=== PATIENT | male | born 1950 | race Caucasian/White ===

== ENCOUNTER 2024-07-17 11:26 | Emergency (ER) | payer OTHER, SELFPAY ==
--- OUTSIDE RECORDS SUMMARY | 2024-07-17 11:29 | XMS_ITS | Encounter Summary ---
Author Organization [facility] Address [address] [place] [address] Care Team Providers Care Oil Producer Name Role Phone Jag Dawson MD Primary Care Provider [phone] Reason for Visit * Reason Onset Date Comments Change Dates on Orders 03/08/2022 Encounter Details Date Type Department Care Team (Late st Contact Info) Description 03/08/[address] [facility] Primary Care [address] [place] [address] Jag Dawson MD 7 [facility] [address] [place] [address] Change Dates on Orders Social History Tobacco Use Types Packs/Day Years Used Date Smoking Tobacco: Never Smokeless Tobacco: Never Alcohol Use Standard Drinks/Week Comments Yes 1.7 (1 standard drink = 0.6 oz p ure alcohol) 2 X WEEK Social Connections Answer Date Recorded In a typical week, how many times do you talk on the phone with family, friends, or neighbors? More than three times a week 03/31/2019 How often do you get togethe r with friends or relatives? Once a week 03/31/2019 How often do you attend chur ch or yazdanism services? More than 4 times per year 03/31/2019 Do you belong to any clubs o r organizations such as hoahaoism groups, unions, fraternal or athletic groups, or school groups? Yes 03/31/2019 How often do you attend meet ings of the clubs or organizations you belong to? More than 4 times per year 03/31/2019 Are you , , di vorced, , never , or living with a partner? 03/31/2019 Financial Resource Strain Answer Date R ecorded How hard is it for you to pa y for the very basics like food, housing, medical care, and heating? Not hard at all 09/08/2021 Food Insecurity Answer Date Recorded In the past 12 months, have you worried that your food would run out before you had money to buy more? Never true 09/08/2021 In the past 12 months, did y ou run out of food and didn't have money to buy more? Never true 09/08/2021 Transportation Needs Answer Date Record ed In the past 12 months, has l ack of transportation kept you from medical appointments or from getting medications? No 09/08/2021 Lack of Transportation (Non-Medical) Not on file 09/08/2021 Sex and Gender Information Value Date Recorded Sex Assigned at Not on file Legal Sex Male 3:09 AM ORDER CALLER Gender Identity Not on file Sexual Orientation Not on file Occupation Industry Job Start Date Job End Date RETIRED Not on file Not on file Not on file documented as of this encounter Miscellaneous Notes * Telephone Encounter - Joesph Spencer - 03/08/2022 4:13 PM CST Pt informed R CALLER * Telephone Encounter - Nasreen Torres ANP - 03/08/2022 2:17 PM ORDER CALLER Lab orders are in the system to be done. R CALLER * Telephone Encounter - Lety Cueto - 03/08/2022 12:31 PM CST Provider: Jag Dawson MD Next office visit: 03/12/2022 Caller: Trevin Cadet Message: Patient is stating that he will go in tomorrow to have his blood labs done, the date on the orders is 09/08/21. They will have to be changed so the patient can get it done. Call-back Number: [phone] R CALLER documented in this encounter Plan of Treatment Upcoming Encounters Date Type Department Care Team (Late st Contact Info) Description 10/22/2024 11:00 AM CDT Office Visit [facility] Primary Care [facility] [address] [facility] [address] [place] [address] Elissa Ortez PA [address] [facility] [address] [place] [address] documented as of this encounter Visit Diagnoses Not on filedocumented in this encounter Care Teams Oil Producer Relationship Specialty Start Date End Date Jag Dawson MD PCP - General 07/02/07 documented as of this encounter
--- OUTSIDE RECORDS SUMMARY | 2024-07-17 11:29 | XMS_ITS | Referral Summary ---
Author Organization [facility] Address [address] [place] [address] Care Team Providers Care Horseradish Maker Name Role Phone Jag Dawson MD Primary Care Provider + Allergies No known active allergies Medications tamsulosin (FLOMAX) 0.4 mg extended release capsule Take 1 capsule (0.4 mg total) by mouth daily 8 Active lisinopriL (PRINIVIL,ZESTR IL) 2.5 mg tablet Take 1 tablet (2.5 mg total) by mouth daily 0 Active atorvastatin (LIPITOR) 20 mg tablet TAKE 1 TABLET BY MOUTH LATE IN THE DAY. 9 Active empagliflozin (Jardiance) 25 mg tablet TAKE 1 TABLET BY MOUTH DAILY EARLY IN THE MORNING 0 Active pen needle, diabetic 32 gauge x 5/32 needle USE 1 DAILY. 0 Active mirabegron ER (Myrbetriq) 25 mg tablet extended release 24 hr Take 1 tablet (25 mg total) by mouth daily 9 Active semaglutide 0.25 mg or 0.5 mg (2 mg/3 mL) pen injector injection Inject 0.5 mg under the skin once a week On saturday Active insulin glargine 100 unit/mL (3 mL) pen for injection Inject 28 Units under the skin nightly Active metFORMIN (FORTAMET) 500 mg 24 hr tablet Take 4 tablets (2,000 mg total) by mouth daily with breakfast Active ezetimibe (ZETIA) 10 mg tablet Take 1 tablet (10 mg total) by mouth daily Active aspirin 81 mg chewable tablet Take 1 tablet (81 mg total) by mouth daily 30 tablet 11 Active Active Problems Problem Noted Date Diagnosed Date Syncope 06/06/2023 Diabetes 06/06/2023 Chest pain, unspecified type 06/05/2023 Social History Tobacco Use Types Packs/Day Years Used Date Smoking Tobacco: Never Smokeless Tobacco: Never Alcohol Use Standard Drinks/Week Comments Yes 0 (1 standard drink = 0.6 oz pur e alcohol) AUDIT-C Answer Date Recorded Q1: How often do you have a drink containing alc ohol? 2-3 times a week 06/05/2023 Q2: How many drinks containi ng alcohol do you have on a typical day when you are drinking? 1 or 2 06/05/2023 Q3: How often do you have si x or more drinks on one occasion? Never 06/05/2023 Personal Safety Answer Date Recorded Have you ever been in or are you currently in a harmful physical or emotional relationship or is someone making you feel afraid or unsafe? 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 Gender Identity Not on file Sexual Orientation Not on file Last Filed Vital Signs Vital Sign Reading Time Taken Comments Blood Pressure 125/63 06/06/2023 3:24 PM CDT Pulse 81 06/06/2023 6:00 PM CDT Temperature 36.3 C (97.3 F) 06/06/2023 3:24 PM CDT Respiratory Rate 18 06/06/2023 3:24 PM CDT Oxygen Saturation 96% 06/06/2023 3:24 PM CDT Inhaled Oxygen Concentration - - Weight 98.8 kg (217 lb 14.4 oz) 06/05/2023 6:22 PM CDT Height 175.3 cm (5' 9 ) 06/05/2023 6:22 PM CDT Body Mass Index 32.18 06/05/2023 6:22 PM CDT Plan of Treatment Not on file Procedures Procedure Name Priority Date/Time Associated Diagnosis Comments EGFR Routine 06/06/2023 2:[address] ABDOMEN PELVIS WO CONTRAST Routine 08/02/2016 2:15 PM CDT COLONOSCOPY IMAGES 04/20/2016 from Last 3 Months or Most Recently Relevant to Health Maintenance Results * eGFR (06/06/2023 2:53 AM CDT) eGFR >90 >=60 mL/min/1. 73 m2 Comment: Interpretive Data Reference Interval Normal >/= 90 mL/min/1.73m2 Mildly decreased* 60 - 89 mL/min/1.73m2 Mildly to moderately decreased 45 - 59 mL/min/1.73m2 Moderately to severely decreased 30 - 44 mL/min/1.73m2 Severely decreased 15 - 29 mL/min/1.73m2 Kidney Failure < 15 mL/min/1.73m2 *Relative to young adult level Estimated glomerular filtration rate is determined by the 2020 CKD-EPI equation recommended by the National Kidney Foundation (A Unifying Approach to GFR Estimation: Recommendations of the NKF-ASK Task Force on Reassessing the Inclusion of Race in Diagnosing Kidney Disease, JASN 2020). The CKD-EPI equation should not be used for patients with unstable renal function and has not been validated in children and those over 70. Current interpretive data was last reviewed 2021. Blood 06/06/2023 2:53 AM CDT 06/06/2023 2:57 AM CDT us Roxana Hernandes MD LAB BLOOD ORDERABLES Fin al Result Performing Organization Address City/State/[facility] Co de Phone Number [facility] [place] [facility] [place] [address] * CT Abdomen Pelvis WO Contrast (08/02/2016 2:15 PM CDT) Anatomical Region Laterality Modality Body N/A Computed Tomogra phy 08/02/2016 2:15 PM CDT Narrative 08/02/2016 2:[address] [place] [id number] Acc#: [id number] DATE OF EXAM: Aug 02 2016 ADDENDUM #[place] [id number] HISTORY: Follow-up right ureteral calculus. TECHNIQUE: Noncontrast spiral axial scans from above kidneys to ischial tuberosities. Coronal and sagittal reformatted images. COMPARISON: CT abdomen and pelvis without contrast on 07/04/2016 FINDINGS: A nonobstructing 10 x 6 mm calculus in lower pole of left kidney is unchanged. No other renal calcifications are seen. Previously described calculus in the proximal right ureter is now located just above the right ureterovesical junction. By my measurement, it is 10 x 6 mm currently and previously. The previous right hydronephrosis has become minimal. Right ureter is mildly prominent compared to the left. Urinary bladder appears normal. Prostate gland is mildly enlarged with some posterior central calcification. A few pelvic phleboliths are noted bilaterally. Appendix is normal. Stool is present throughout the colon from cecum to rectum. No dilated colon or small bowel is seen. There is no lymphadenopathy or ascites. Aortoiliac arteriosclerosis is seen without aneurysm. Visualized portions of liver and spleen are normal. Gallbladder, bile ducts, pancreas and adrenal glands are normal. Some degenerative changes are present in the lumbar spine. Small right inguinal hernia contains only adipose tissue. IMPRESSION: 1. Right ureteral calculus now located just above the right ureterovesical junction. 2. Nonobstructing lower pole left renal calculus. 3. Right hydronephrosis is now only minimal. 4. Stool quantity in colon suggestive of constipation. 5. Small right inguinal hernia containing only adipose tissue. 6. No other significant abdominal or pelvic findings. Electronically signed by: Bennett Junior Jr., M.D. Edited by: Yeni Leon ORIGINAL REPORT - [place] [id number] HISTORY: Follow-up right ureteral calculus. TECHNIQUE: Noncontrast spiral axial scans from above kidneys to initial tuberosities. Coronal and sagittal reformatted images. COMPARISON: CT abdomen and pelvis without contrast on 07/04/2016 FINDINGS: A nonobstructing 10 x 6 mm calculus in lower pole of left kidney is unchanged. No other renal calcifications are seen. Previously described calculus in the proximal right ureter is now located just above the right ureterovesical junction. By my measurement, it is 10 x 6 mm currently and previously. The previous right hydronephrosis has become minimal. Right ureter is mildly prominent compared to the left. Urinary bladder appears normal. Prostate gland is mildly enlarged with some posterior central calcification. A few pelvic phleboliths are noted bilaterally. Appendix is normal. Stool is present throughout the colon from cecum to rectum. No dilated colon or small bowel is seen. There is no lymphadenopathy or ascites. Aortoiliac arteriosclerosis is seen without aneurysm. Visualized portions of liver and spleen are normal. Gallbladder, bile ducts, pancreas and adrenal glands are normal. Some degenerative changes are present in the lumbar spine. Small right inguinal hernia contains only adipose tissue. IMPRESSION: 1. Right ureteral calculus now located just above the right ureterovesical junction. 2. Nonobstructing lower pole left renal calculus. 3. Right hydronephrosis is now only minimal. 4. Stool quantity in colon suggestive of constipation. 5. Small right inguinal hernia containing only adipose tissue. 6. No other significant abdominal or pelvic findings. Electronically signed by: Bennett Junior Jr., M.D. Interpreting Physician: DR BENNETT JUNIOR M.D. Read on: Aug 02 2016 12:07P Transcribed by: [facility] On: Aug 02 2016 2:59P Approved Electronically by: KAVITHA Chacon, DR BALDERAS on: Aug 02 2016 2:59P Ordering DR: DR BOB SAUER Attending DR: DR BOB SAUER Attending: DR BOB SAUER Requesting: DR BOB SAUER Requesting Attending Attending ID: [id number] Requesting ID: [id number] Report To 1 ID: [id number] Report To 1 Name: DR BOB SAUER Report To 1 FAX: [phone] NextGen Order #: Procedure Note Miscellaneous, Not In File / Provider, MD Ben - 08/07/[address] [place] [id number] Acc#: [id number] DATE OF EXAM: Aug 02 2016 ADDENDUM #[address] [place] [id number] HISTORY: Follow-up right ureteral calculus. TECHNIQUE: Noncontrast spiral axial scans from above kidneys to ischial tuberosities. Coronal and sagittal reformatted images. COMPARISON: CT abdomen and pelvis without contrast on 07/04/2016 FINDINGS: A nonobstructing 10 x 6 mm calculus in lower pole of left kidney is unchanged. No other renal calcifications are seen. Previously described calculus in the proximal right ureter is now located just above the right ureterovesical junction. By my measurement, it is 10 x 6 mm currently and previously. The previous right hydronephrosis has become minimal. Right ureter is mildly prominent compared to the left. Urinary bladder appears normal. Prostate gland is mildly enlarged with some posterior central calcification. A few pelvic phleboliths are noted bilaterally. Appendix is normal. Stool is present throughout the colon from cecum to rectum. No dilated colon or small bowel is seen. There is no lymphadenopathy or ascites. Aortoiliac arteriosclerosis is seen without aneurysm. Visualized portions of liver and spleen are normal. Gallbladder, bile ducts, pancreas and adrenal glands are normal. Some degenerative changes are present in the lumbar spine. Small right inguinal hernia contains only adipose tissue. IMPRESSION: 1. Right ureteral calculus now located just above the right ureterovesical junction. 2. Nonobstructing lower pole left renal calculus. 3. Right hydronephrosis is now only minimal. 4. Stool quantity in colon suggestive of constipation. 5. Small right inguinal hernia containing only adipose tissue. 6. No other significant abdominal or pelvic findings. Electronically signed by: Bennett Junior Jr., M.D. Edited by: Yeni Leon ORIGINAL REPORT - [place] [id number] HISTORY: Follow-up right ureteral calculus. TECHNIQUE: Noncontrast spiral axial scans from above kidneys to initial tuberosities. Coronal and sagittal reformatted images. COMPARISON: CT abdomen and pelvis without contrast on 07/04/2016 FINDINGS: A nonobstructing 10 x 6 mm calculus in lower pole of left kidney is unchanged. No other renal calcifications are seen. Previously described calculus in the proximal right ureter is now located just above the right ureterovesical junction. By my measurement, it is 10 x 6 mm currently and previously. The previous right hydronephrosis has become minimal. Right ureter is mildly prominent compared to the left. Urinary bladder appears normal. Prostate gland is mildly enlarged with some posterior central calcification. A few pelvic phleboliths are noted bilaterally. Appendix is normal. Stool is present throughout the colon from cecum to rectum. No dilated colon or small bowel is seen. There is no lymphadenopathy or ascites. Aortoiliac arteriosclerosis is seen without aneurysm. Visualized portions of liver and spleen are normal. Gallbladder, bile ducts, pancreas and adrenal glands are normal. Some degenerative changes are present in the lumbar spine. Small right inguinal hernia contains only adipose tissue. IMPRESSION: 1. Right ureteral calculus now located just above the right ureterovesical junction. 2. Nonobstructing lower pole left renal calculus. 3. Right hydronephrosis is now only minimal. 4. Stool quantity in colon suggestive of constipation. 5. Small right inguinal hernia containing only adipose tissue. 6. No other significant abdominal or pelvic findings. Electronically signed by: Bennett Junior Jr., M.D. Interpreting Physician: DR BENNETT JUNIOR M.D. Read on: Aug 02 2016 12:07P Transcribed by: [facility] On: Aug 02 2016 2:59P Approved Electronically by: KAVITHA Chacon, DR BALDERAS on: Aug 02 2016 2:59P Ordering DR: DR BOB SAUER Attending DR: DR BOB SAUER Attending: DR BOB SAUER Requesting: DR BOB SAUER Requesting Attending Attending ID: [id number] Requesting ID: [id number] Report To 1 ID: [id number] Report To 1 Name: DR BOB SAUER Report To 1 FAX: [phone] NextGen Order #: us Not In File Miscellaneous IMG CT PROCEDURES Jessica l Result * COLONOSCOPY IMAGES (04/20/2016) Anatomical Region Laterality Modality Other Narrative 04/20/2016 Ordered by an unspecified provider. us Historical Provider GI PROCEDURE ORDERABLES F inal Result from Last 3 Months or Most Recently Relevant to Health Maintenance Insurance [employer] MEDICARE [facility] Address: [address] [address] [place] [address] [facility] Advance Directives For more information, please contact: [phone] * Full Code (Latest Code Status on File) Date Activated Date Inactivated Comments 06/05/2023 8:24 PM 06/06/2023 10:32 PM Care Teams Horseradish Maker Relationship Specialty Start Date End Date Jag Dawson MD PCP - General 04/20/16
--- OUTSIDE RECORDS SUMMARY | 2024-07-17 11:29 | XMS_ITS | Clinical Summary ---
Author Organization Address [address] [place] [address] Care Team Providers Care Resource Development Director Name Role Phone Jag Dawson MD Primary [...] Diabetes 06/06/2023 Chest pain, unspecified type 06/05/2023 Surgical History Surgery Date Site/Laterality Comments EAR SURGERY 03/04/1984 - 03/03/1985 Medical History Medical History Date Comments Diabetes mellitus (HCC) Kidney stone Gout Family History Medical History Relation Name Comments Arthritis Other Cancer Other Heart disease Other Relation Name Status Comments Other Social History Tobacco Use Types Packs/Day Years [...] on file 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 Gender Identity Not on file Sexual Orientation Not on file Obstetrics History Last Filed Vital Signs Vital Sign Reading [...] 06/05/2023 6:22 PM CDT Plan of Treatment Health Maintenance Due Date Last Done Comments Albumin Creatinine Ratio, Urine 1950 Depression Screening 1950 Hepatitis C Screening 1950 Dilated Eye Exam 1950 Foot Exam 1949 Lipid Panel 1949 Hepatitis B Screening 1967 Well Visit 65+ 2014 Zoster Vaccine (2 of 3) 12/16/2014 10/21/2014 DTaP/Tdap/Td Vaccine (2 - Td or Tdap) 03/25/2023 03/25/2013, 08/14/2004, 09/01/1994 Covid-19 Vaccine (4 - 2023-2 5 season) 2023 01/11/2021, 05/25/2020, 05/03/2020 Fall Risk Assessment 06/05/2024 06/06/2023 eGFR 06/05/2024 06/06/2023, 04/0 05/2023, 07/04/2016 Hemoglobin A1C 07/21/2024 01/22/2024, 08/0 03/2023, 06/04/2023, Additional history exists Colon Cancer Screening-Colonoscopy 04/20/2026 04/20/2016, 04/20/2016 Colon Cancer Screening-CT Colonography Discontinued 04/20/2016, 04/20/2016 Colon Cancer Screening-DNA Stool Discontinued 04/20/19, 04/20/2016 Colon Cancer Screening-FIT Discontinued 04/20/2016, Colon Cancer Screening-Sigmoidoscopy Discontinued 04/20/2016, 04/20/2016 Abdominal Aortic Aneurysm (A AA) Screen Completed 08/02/2016, 07/04/2016 Pneumococcal vaccine 65+ Completed 020, 03/25/2015, 08/14/2004, Additional history exists Influenza Vaccine Completed 12/03/2023, , 01/11/2021, Additional history exists Procedures Procedure Name Priority Date/Time Associated Diagnosis [...] MD LAB BLOOD ORDERABLES Fin al Result [facility] [place] [facility] Department of Laboratories [place], [place] [id number] * CT Abdomen Pelvis WO Contrast (08/02/2016 2:15 PM CDT) Anatomical Region Laterality Modality Body N/A Computed Tomogra phy 08/02/2016 2:15 PM CDT Narrative 08/02/2016 2:[address] [place] [id number] Acc#: [id number] DATE OF EXAM: Aug 02 2016 ADDENDUM #[place] [address] HISTORY: Follow-up right ureteral calculus. TECHNIQUE: Noncontrast [...] - [place] [address] HISTORY: Follow-up right ureteral calculus. TECHNIQUE: Noncontrast [...] on: Aug 02 2016 12:07P Transcribed by: [facility] On: Aug 02 2016 2:59P Approved Electronically by: KAVITHA Chacon, DR BALDERAS on: Aug 02 2016 2:59P Ordering DR: DR BOB SAUER Attending DR: DR BOB SAUER Attending: DR BOB SAUER Requesting: DR BOB SAUER Requesting Attending Attending ID: [id number] Requesting ID: [id number] Report To 1 ID: [id number] Report To 1 Name: DR BOB SAUER Report To 1 FAX: [phone] NextGen Order #: Procedure Note Miscellaneous, Not In File / Provider, MD Ben - 08/07/[place] [id number] Acc#: [id number] DATE OF EXAM: Aug 02 2016 ADDENDUM #[place] [address] HISTORY: Follow-up right ureteral calculus. TECHNIQUE: Noncontrast [...] - [place] [address] HISTORY: Follow-up right ureteral calculus. TECHNIQUE: Noncontrast [...] on: Aug 02 2016 12:07P Transcribed by: [facility] On: Aug 02 2016 2:59P Approved Electronically by: KAVITHA Chacon, DR BALDERAS on: Aug 02 2016 2:59P Ordering DR: DR BOB SAUER Attending DR: DR BOB SAUER Attending: DR BOB SAUER Requesting: DR BOB SAUER Requesting Attending Attending ID: [id number] Requesting ID: [id number] Report To 1 ID: [id number] Report To 1 Name: DR BOB SAUER Report To 1 FAX: [phone] NextGen Order #: Not In File Miscellaneous IMG CT PROCEDURES Jessica l Result * COLONOSCOPY IMAGES (04/20/2016) Anatomical Region Laterality Modality Other Narrative 04/20/2016 Ordered by an unspecified provider. Historical Provider GI PROCEDURE ORDERABLES F inal Result from Last 3 Months or Most Recently Relevant to Health Maintenance Insurance [facility] MEDICARE ADVANTAGE [facility] Advance Directives For more information, please contact: [phone] * Full Code (Latest Code Status on File) Date Activated Date Inactivated Comments 06/05/2023 8:24 PM 06/06/2023 10:32 PM Care Teams Resource Development Director Relationship Specialty Start Date End Date Jag Dawson MD PCP - General 04/20/16
--- OUTSIDE RECORDS SUMMARY | 2024-07-17 11:30 | XMS_ITS | Encounter Summary ---
Author Organization [facility] Address 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 CHIEF COMPLAINT Patient here for follow up diabetes, hyperlipidemia, hypertension. HISTORY: HISTORY: 250.00-DM II CONTROLLED The diabetes remains stable. 272.4-HYPERLIPIDEMIA The patient`s most recent labs reviewed. 401.9-HYPERTENSION, UNSPECIFIED The patient denies chest pain, shortness of breath, dyspnea on exertion, pedal edema, or headache. 782.1-RASH inc on foot again ROS: ENDOCRINE: No heat or cold intolerance, no excessive thirst. CARDIAC: No chest pain, palpitations, orthopnea, dyspnea on exertion, or paroxysmal nocturnal dyspnea. : No dysuria or hematuria. GI: No abdominal pain, nausea, vomiting, diarrhea, constipation, melena, or hematochezia. PAST MEDICAL HISTORY: DM SOCIAL HISTORY: working TOBACCO USE: Has no significant smoking history. DISCUSSED SMOKING: neg. OCCUPATION: . recently layed off ALCOHOL: Drinks a moderate amount of alcoholic beverages. PHYSICAL EXAMINATION: CONSTITUTIONAL: GENERAL APPEARANCE: Healthy appearing patient in no distress. EARS, NOSE, MOUTH AND THROAT: ORAL: Inspection of gums, lips, palate, and teeth normal. No scars, lesions, or masses. Oral mucosaunremarkable with non-inflamed posterior pharynx. NECK/THYROID: Trachea midline. No thyroid enlargement, tenderness, or mass. No supraclavicular or cervical adenopathy. RESPIRATORY: Clear to auscultation and percussion. Normal respiratory effort. CARDIOVASCULAR: CARDIAC: Regular rhythm. No murmurs, rubs, or gallops. ARTERIAL: No aortic bruits. EDEMA/VARICOSITIES OF EXTREMITIES: No edema or varicosities. GASTROINTESTINAL: ABDOMEN: Soft, non-tender, without masses. Bowel sounds active. LIVER/SPLEEN/KIDNEY: No hepatosplenomegaly, tenderness or nodularity. Kidneys not palpable. MUSCULOSKELETAL EXAM: EXTREMITIES: DIABETIC II FOOT EXAM: The patient`s diabetic foot exam is within normal limits. Negative for callous, ulcers, tinea pedis, onychomycosis, arterial insufficiency or neuropathy. SKIN: dorsum feet plaque like lesions, erythema ASSESSMENT/PLAN: 250.00-DM II CONTROLLED reviewed, meds, stable, cont for now, enc pt to check glu more often risk of high and low glucose explained LAB ORDERS: 4 mo Order number: [id number] Test Ordered: COMPREHENSIVE METABOLIC PANEL & GFR 1112 Order number: [id number] Test Ordered: LIPID PANEL 1078 Order number: [id number] Test Ordered: HEMOGLOBIN A1C 1814 272.4-HYPERLIPIDEMIA cont med, enc diet and exercise 401.9-HYPERTENSION, UNSPECIFIED contmed, as above 782.1-RASH restart cream MEDICATIONS: LOTRISONE EXTERNAL CREAME 1-0.05 %, DIRECTED, 50 Dispensed, status: CONTINUED, 11/26/2006. PREVENTIVE COUNSELING The patient was counseled regarding diet, regular sustained exercise for at least 30 minutes 3-4 times per week. Patient Education: Risks, benefits, and possible side effects of medication(s) were reviewed with the patient. RETURN VISIT : Patient instructed to return in 4 months. Electronically Signed by: Jag Dawson MD on Sunday, November 26, 2006 documented in this encounter Plan of Treatment Upcoming Encounters Date Type Department Care Team (Late st Contact Info) Description 10/22/2024 11:00 AM CDT Office Visit [facility] Primary Care [facility] [address] [address] Elissa Ortez PA [address] [address] documented as of this encounter Visit Diagnoses Not on filedocumented in this encounter Care Teams Temporary Help Agency Referral Clerk Relationship Specialty Start Date End Date Jag Dawson MD PCP - General 07/02/07 documented as of this encounter
--- OUTSIDE RECORDS SUMMARY | 2024-07-17 11:30 | XMS_ITS | Encounter Summary ---
Author Organization [facility] Address [address] [place] [address] Care Team Providers Care Travel Coordinator Name Role Phone Jag Dawson MD Primary Care Provider [phone] Encounter Details Date Type Department Care Team (Late st Contact Info) Description 09/13/2005 Orders Only [facility] Internal Medicine [address] [address] Jag Dawson MD 637 [facility] [address] [place] [address] Social History Tobacco Use Types Packs/Day Years Used Date Smoking Tobacco: Never Assessed Sex and Gender Information Value Date Recorded Sex Assigned at Not on file Legal 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 Gender Identity Not on file Sexual Orientation Not on file documented as of this encounter Plan of Treatment Upcoming Encounters Date Type Department Care Team (Late st Contact Info) Description 10/22/2024 11:00 AM CDT Office Visit [facility] Primary Care [facility] [address] [facility] [address] [place] [address] Elissa Ortez PA [address] [place] [address] [address] [place] [address] documented as of this encounter Visit Diagnoses Not on filedocumented in this encounter Care Teams Travel Coordinator Relationship Specialty Start Date End Date Jag Dawson MD PCP - General 07/02/07 documented as of this encounter
--- OUTSIDE RECORDS SUMMARY | 2024-07-17 11:30 | XMS_ITS | Encounter Summary ---
Author Organization [facility] Address 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 MOVER Gender Identity Not on file Sexual Orientation Not on file documented as of this encounter Plan of Treatment Upcoming Encounters Date Type Department Care Team (Late st Contact Info) Description 10/22/2024 11:00 AM CDT Office Visit [facility] Primary Care [facility] [address] [facility] [address] [place] [address] Elissa Ortez PA [address] [place] [address] [address] [place] [address] documented as of this encounter Visit Diagnoses Not on filedocumented in this encounter Care Teams Renal Dialysis Technician Relationship Specialty Start Date End Date Jag Dawson MD PCP - General 07/02/07 documented as of this encounter
--- OUTSIDE RECORDS SUMMARY | 2024-07-17 11:30 | XMS_ITS | Encounter Summary ---
Author Organization [facility] Address 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 [address] [place] [address] Elissa Ortez PA [address] [place] [address] [address] [place] [address] documented as of this encounter Visit Diagnoses Not on filedocumented in this encounter Care Teams Bridge Club Manager Relationship Specialty Start Date End Date Jag Dawson MD PCP - General 07/02/07 documented as of this encounter
--- OUTSIDE RECORDS SUMMARY | 2024-07-17 11:30 | XMS_ITS | Encounter Summary ---
Author Organization [facility] Address [address] [place] [address] Care Team Providers Care Regional Sales Director Name Role Phone Jag Dawson MD Primary Care Provider [phone] Encounter Details Date Type Department Care Team (Late Contact Info) Description 05/15/2004 Outpatient Historical [facility] Internal Medicine [address] [address] Jag Dawson MD [address] [place] [address] [address] [place] [address] Social History Tobacco Use Types Packs/Day Years Used Date Smoking Tobacco: Never Assessed Sex and Gender Information Value Date Recorded Sex Assigned at Not on file Legal Sex Male 3:09 AM IN HOME CAREGIVER Gender Identity Not on file Sexual Orientation Not on file documented as of this encounter Last Filed Vital Signs Vital Sign Reading Time Taken Comments Blood Pressure 130/70 05/15/2004 4:15 PM IN HOME CAREGIVER Pulse - - Temperature - - Respiratory Rate - - Oxygen Saturation - - Inhaled Oxygen Concentration - - Weight 109.8 kg (242 lb) 05/15/2004 4:15 PM IN HOME CAREGIVER Height - - Body Mass Index - - documented in this encounter Plan of Treatment Upcoming Encounters Date Type Department Care Team (Late st Contact Info) Description 10/22/2024 11:00 AM CDT Office Visit [facility] Primary Care [address] [place] [address] Elissa Ortez PA 637 [facility] [address] [place] [address] documented as of this encounter Visit Diagnoses Not on filedocumented in this encounter Care Teams Regional Sales Director Relationship Specialty Start Date End Date Jag Dawson MD PCP - General 07/02/07 documented as of this encounter
--- OUTSIDE RECORDS SUMMARY | 2024-07-17 11:30 | XMS_ITS | Encounter Summary ---
Author Organization [facility] Address 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 AM COUNTER STITCHER Gender Identity Not on file Sexual Orientation Not on file documented as of this encounter Plan of Treatment Upcoming Encounters Date Type Department Care Team (Late st Contact Info) Description 10/22/2024 11:00 AM CDT Office Visit [facility] Primary Care [facility] 637 [facility] [address] [place] [address] Elissa Ortez PA [address] [place] [address] [address] [place] [address] documented as of this encounter Visit Diagnoses Not on filedocumented in this encounter Care Teams Senior Windows Administrator Relationship Specialty Start Date End Date Jag Dawson MD PCP - General 07/02/07 documented as of this encounter
--- OUTSIDE RECORDS SUMMARY | 2024-07-17 11:30 | XMS_ITS | Encounter Summary ---
Author Organization [facility] Address 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 Gender Identity Not on file Sexual Orientation Not on file documented as of this encounter Plan of Treatment Upcoming Encounters Date Type Department Care Team (Late st Contact Info) Description 10/22/2024 11:00 AM CDT Office Visit [facility] Primary Care [facility] 6[address] [facility] [address] [place] [address] Elissa Ortez PA [address] [place] [address] [address] [place] [address] documented as of this encounter Visit Diagnoses Not on filedocumented in this encounter Care Teams Lead Burner Supervisor Relationship Specialty Start Date End Date Jag Dawson MD PCP - General 07/02/07 documented as of this encounter
--- OUTSIDE RECORDS SUMMARY | 2024-07-17 11:30 | XMS_ITS | Encounter Summary ---
Author Organization [facility] Address [address] [place] [address] Care Team Providers Care Application Spec Name Role Phone Jag Dawson MD Primary Care Provider [phone] Encounter Details Date Type Department Care Team (Late st Contact Info) Description 12/21/2005 Orders Only [facility] Internal Medicine [address] [address] Jag Dawson MD [address] [facility] [address] [place] [address] Social History Tobacco Use Types Packs/Day Years Used Date Smoking Tobacco: Never Assessed Sex and Gender Information Value Date Recorded Sex Assigned at Not on file Legal Sex Male 3:09 AM RECORDS MANAGEMENT MANAGER Gender Identity Not on file Sexual Orientation Not on file documented as of this encounter Plan of Treatment Upcoming Encounters Date Type Department Care Team (Late st Contact Info) Description 10/22/2024 11:00 AM CDT Office Visit [facility] Primary Care [facility] [address] [facility] [address] [place] [address] Elissa Ortez PA [address] [place] [address] [address] [place] [address] documented as of this encounter Visit Diagnoses Not on filedocumented in this encounter Care Teams Application Spec Relationship Specialty Start Date End Date Jag Dawson MD PCP - General 07/02/07 documented as of this encounter
--- OUTSIDE RECORDS SUMMARY | 2024-07-17 11:30 | XMS_ITS | Encounter Summary ---
Author Organization [facility] Address 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 [address] [place] [address] Elissa Ortez PA [address] [place] [address] [address] [place] [address] documented as of this encounter Visit Diagnoses Not on filedocumented in this encounter Care Teams Winding Lathe Operator Relationship Specialty Start Date End Date Jag Dawson MD PCP - General 07/02/07 documented as of this encounter
--- OUTSIDE RECORDS SUMMARY | 2024-07-17 11:30 | XMS_ITS | Encounter Summary ---
Author Organization [facility] Address [address] [place] [address] Care Team Providers Care Senior Principal Process Engineer Name Role Phone Jag Dawson MD Primary Care Provider [phone] Encounter Details Date Type Department Care Team (Late st Contact Info) Description 03/25/2007 Outpatient Historical [facility] Internal Medicine [address] [address] Jag Dawson MD 637 [facility] [address] [place] [address] Social History Tobacco Use Types Packs/Day Years Used Date Smoking Tobacco: Never Assessed Sex and Gender Information Value Date Recorded Sex Assigned at Not on file Legal Sex Male 3:09 AM CLINICAL 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 Gender Identity Not on file Sexual Orientation Not on file documented as of this encounter Plan of Treatment Upcoming Encounters Date Type Department Care Team (Late st Contact Info) Description 10/22/2024 11:00 AM CDT Office Visit [facility] Primary Care [facility] 637 [facility] [address] [place] [address] Elissa Ortez PA [address] [place] [address] [address] [place] [address] documented as of this encounter Visit Diagnoses Not on filedocumented in this encounter Care Teams Senior Principal Process Engineer Relationship Specialty Start Date End Date Jag Dawson MD PCP - General 07/02/07 documented as of this encounter
--- OUTSIDE RECORDS SUMMARY | 2024-07-17 11:30 | XMS_ITS | Encounter Summary ---
Author Organization [facility] Address 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 HISTORY: 4-6 weeks occ sinus, now with sore throat, some gerd sx PHYSICAL EXAMINATION: CONSTITUTIONAL: GENERAL APPEARANCE: Healthy appearing patient in no distress. EARS, NOSE, MOUTH AND THROAT: EARS: EFFUSION PRESENT BILATERALLY. ORAL: Inspection of gums, lips, palate, and teeth normal. No scars, lesions, or masses. Oral mucosaunremarkable with non-inflamed posterior pharynx. NECK/THYROID: Trachea midline. No thyroid enlargement, tenderness, or mass. No supraclavicular or cervical adenopathy. RESPIRATORY: Clear to auscultation and percussion. Normal respiratory effort. CARDIOVASCULAR: CARDIAC: Regular rhythm. No murmurs, rubs, or gallops. ARTERIAL: Aortic pulses of normal amplitude with no bruits. EDEMA/VARICOSITIES OF EXTREMITIES: No edema or varicosities. GASTROINTESTINAL: ABDOMEN: Soft, non-tender, without masses. Bowel sounds active. LIVER/SPLEEN/KIDNEY: No hepatosplenomegaly, tenderness or nodularity. Kidneys not palpable. ASSESSMENT/PLAN: 461.9-SINUSITIS UNSPECIFIED MEDICATIONS: ZITHROMAX Z-SAVANAH ORAL TABLET 250 MG, DIRECTED, 1 Dispensed, 1 Fills, status: CONTINUED, 08/15/2005. 530.81-GASTROESOPHAGEAL REFLUX (GERD) try med reassess, discussed may need egd MEDICATIONS: OMEPRAZOLE ORAL CAPSULE DELAYED RELEASE 20 MG, 1 Every Day, 30 Dispensed, status: NEW PRESCRIPTION,08/15/2005. RETURN VISIT : Instructed to call if not improving. Electronically Signed by: Jag Dawson MD on Monday, August 15, 2005 documented in this encounter Plan of Treatment Upcoming Encounters Date Type Department Care Team (Late st Contact Info) Description 10/22/2024 11:00 AM CDT Office Visit [facility] Primary Care [facility] [address] [address] Elissa Ortez PA [address] [place] [address] [place] [address] documented as of this encounter Visit Diagnoses Not on filedocumented in this encounter Care Teams Door And Arrival Attendant Relationship Specialty Start Date End Date Jag Dawson MD PCP - General 07/02/07 documented as of this encounter
--- OUTSIDE RECORDS SUMMARY | 2024-07-17 11:30 | XMS_ITS | Encounter Summary ---
Author Organization [facility] Address 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 Best Time to Call : ANYTIME. May We Leave Message At That Number : YES, LEAVE MESSAGE. Referring to: GASTROENTEROLOGY Dr. Alan Gaytan ph: [phone]. Reason for referral: screening colonoscopy PATIENT DIAGNOSIS: . ORDERING PHYSICIAN : AMIRA PRATT MD PRIORITY OF REFERRAL: AT PATIENT'S CONVENIENCE. OFFICE SALES MARKETING & PHONE: Angelita Flores C FOR SCHEDULING USE ONLY: FIRST ATTEMPT Date:APR 12, 2006 Tamara Woods 04:59 p Faxed request to Dr. Gaytan's office to schedule. SECOND ATTEMPT: Date:JUN 07, 2006 Areli Mckinney 09:40 a Left Message with Family Member. S/w a male - pt not home @ the time. Leftmsg for pt to call [facility]. (checking to see if appt has been scheduled) THIRD ATTEMPT : Date JUN 07, 2006 Ale Munoz A 01:52 p Letter Sent to Patient. 06-12-06 Pt. called in responding to letter. Entering appt date with Dr. Gaytan... APPOINTMENT DATE : 05/14/2006 Referral number: CMR NN * Amira Pratt MD - 07/25/2007 5:24 PM CDT WHO TOOK THE CALL: Amira Pratt M TIME:04:43 pm * Amira Pratt MD - 07/25/2007 5:24 PM CDT WEIGHT: 232lbs BLOOD PRESSURE: 150/70 Right Arm Sitting NURSE NAME: [place] N CHIEF COMPLAINT Patient here for follow up diabetes, hypertension. HISTORY: HISTORY: 250.00-DM II CONTROLLED The diabetes remains stable. The patient denies polyuria, polyphagia, polydipsia, change in vision, foot ulcerations, or hypoglycemic episodes. 272.4-HYPERLIPIDEMIA The patient is tolerating the medications. 401.9-HYPERTENSION, UNSPECIFIED The patient denies chest pain, shortness of breath, dyspnea on exertion, pedal edema, or headache. 461.9-SINUSITIS UNSPECIFIED was better some sinus drainage, sore throat 530.81-GASTROESOPHAGEAL REFLUX (GERD) The patient's dyspeptic symptoms remain stable. ROS: ENDOCRINE: HISTORY OF DIABETES. occ low reactions if drinking CARDIAC: No chest pain, palpitations, orthopnea, dyspnea on exertion, or paroxysmal nocturnal dyspnea. RESPIRATORY: No dyspnea, cough, hemoptysis or wheezing. : No dysuria or hematuria. GI: No abdominal pain, nausea, vomiting, diarrhea, constipation, melena, or hematochezia. PAST MEDICAL HISTORY: DM SOCIAL HISTORY: working TOBACCO USE: Has no significant smoking history. OCCUPATION: . recently layed off ALCOHOL: Drinks [...] hepatosplenomegaly, tenderness or nodularity. Kidneys not palpable. SKIN: SKIN: Warm, dry, no diaphoresis, no significant lesions, irritation, rashes or ulcers. No induration, obvious subcutaneous nodules or tightening. ASSESSMENT/PLAN: 250.00-DM II CONTROLLED advised limit etoh use risk fluctuating and unpredictable glucose explained, cont med as current, new meter with strips given LAB ORDERS: 3mo Order number: [id number] Test Ordered: COMPREHENSIVE METABOLIC PANEL W/ GLOMERULAR FILTRATION RATE, ESTIMATED (EGFR) 49884 Order number: [id number] Test Ordered: HEMOGLOBIN A1c 496 Order number: [id number] Test Ordered: LIPID PANEL 7600 Order number: [id number] Test Ordered: MICROALBUMIN/CREATININE RATIO, RANDOM URINE 6517 Order number: [id number] Test Ordered: PSA 5363 272.4-HYPERLIPIDEMIA contmed 401.9-HYPERTENSION, UNSPECIFIED ok on repeat, cnt med 461.9-SINUSITIS UNSPECIFIED re rx MEDICATIONS: CEFUROXIME AXETIL ORAL TABLET 250 MG, 1 Two Times A Day, 20 Dispensed, 10 Duration/Days Supply, status: CONTINUED, 04/10/2006. REPEAT VITAL SIGNS: BLOOD PRESSURE: 120/70. Right Arm Sitting SPECIALTY REFERRAL: GASTROENTEROLOGY Dr. Alan Gaytan ph: [phone]. Dr. Shayne Cook ph: [phone].colonoscopy/egd-reflux PREVENTIVE COUNSELING The patient was counseled regarding colorectal cancer screening, diet, regular sustained exercise for at least 30 minutes 3-4 times per week, the appropriate use of alcohol. Patient Education: Risks, benefits, and possible side effects of medication(s) were reviewed with the patient. Questions were allowed to stated satisfaction. Electronically Signed by: Amira Pratt MD on Monday, April 10, 2006 documented in this encounter Plan of Treatment Upcoming Encounters Date Type Department Care Team (Late st Contact Info) Description 10/22/2024 11:00 AM CDT Office Visit [facility] Primary Care [facility] [address] [address] Elissa Ortez PA [address] [address] documented as of this encounter Visit Diagnoses Not on filedocumented in this encounter Care Teams Trading Analyst Relationship Specialty Start Date End Date Amira Pratt MD PCP - General 07/02/07 documented as of this encounter
--- OUTSIDE RECORDS SUMMARY | 2024-07-17 11:30 | XMS_ITS | Encounter Summary ---
Author Organization [facility] Address 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 Gender Identity Not on file Sexual Orientation Not on file documented as of this encounter Last Filed Vital Signs Vital Sign Reading Time Taken Comments Blood Pressure 130/80 06/06/2005 2:15 PM CDT Pulse - - Temperature - - Respiratory Rate - - Oxygen Saturation - - Inhaled Oxygen Concentration - - Weight 102.5 kg (226 lb) 06/06/2005 2:15 PM CDT Height - - Body Mass Index - - documented in this encounter Plan of Treatment Upcoming Encounters Date Type Department Care Team (Late st Contact Info) Description 10/22/2024 11:00 AM CDT Office Visit [facility] Primary Care [address] [place] [address] Elissa Ortez PA 637 [facility] [address] [place] [address] documented as of this encounter Visit Diagnoses Not on filedocumented in this encounter Care Teams Tire Bladder Maker Relationship Specialty Start Date End Date Jag Dawson MD PCP - General 07/02/07 documented as of this encounter
--- OUTSIDE RECORDS SUMMARY | 2024-07-17 11:30 | XMS_ITS | Encounter Summary ---
Author Organization [facility] Address 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 Gender Identity Not on file Sexual Orientation Not on file documented as of this encounter Last Filed Vital Signs Vital Sign Reading Time Taken Comments Blood Pressure 122/70 08/16/2003 4:45 PM CDT Pulse - - Temperature - - Respiratory Rate - - Oxygen Saturation - - Inhaled Oxygen Concentration - - Weight 104.3 kg (230 lb) 08/16/2003 4:45 PM CDT Height - - Body Mass Index - - documented in this encounter Plan of Treatment Upcoming Encounters Date Type Department Care Team (Late st Contact Info) Description 10/22/2024 11:00 AM CDT Office Visit [facility] Primary Care [address] [place] [address] Elissa Ortez PA [address] [facility] [address] [place] [address] documented as of this encounter Visit Diagnoses Not on filedocumented in this encounter Care Teams Training Analyst Relationship Specialty Start Date End Date Jag Dawson MD PCP - General 07/02/07 documented as of this encounter
--- OUTSIDE RECORDS SUMMARY | 2024-07-17 11:30 | XMS_ITS | Encounter Summary ---
Author Organization [facility] Address [address] [place] [address] Care Team Providers Care Rejected Items Clerk Name Role Phone Jag Daswon MD Primary Care Provider Encounter Details Date Type Department Care Team (Late st Contact Info) Description 11/21/2005 Orders Only [facility] Internal Medicine [address] [address] Jag Dawson MD 637 [facility] [address] [place] [address] Social History Tobacco Use Types Packs/Day Years Used Date Smoking Tobacco: Never Assessed Sex and Gender Information Value Date Recorded Sex Assigned at Not on file 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 Gender Identity Not on file Sexual Orientation Not on file documented as of this encounter Plan of Treatment Upcoming Encounters Date Type Department Care Team (Late st Contact Info) Description 10/22/2024 11:00 AM CDT Office Visit [facility] Primary Care [facility] [address] [facility] [address] [place] [address] Elissa Ortez PA [address] [place] [address] [address] [place] [address] documented as of this encounter Visit Diagnoses Not on filedocumented in this encounter Care Teams Rejected Items Clerk Relationship Specialty Start Date End Date Jag Dawson MD PCP - General 07/02/07 documented as of this encounter
--- OUTSIDE RECORDS SUMMARY | 2024-07-17 11:30 | XMS_ITS | Encounter Summary ---
Author Organization [facility] Address 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 Gender Identity Not on file Sexual Orientation Not on file documented as of this encounter Last Filed Vital Signs Vital Sign Reading Time Taken Comments Blood Pressure 130/70 08/15/2005 3:30 PM CDT Pulse - - Temperature 36.6 C (97.8 F) 08/15/2005 3:30 PM CDT Respiratory Rate - - Oxygen Saturation - - Inhaled Oxygen Concentration - - Weight 102.1 kg (225 lb) 08/15/2005 3:30 PM CDT Height - - Body Mass Index - - documented in this encounter Plan of Treatment Upcoming Encounters Date Type Department Care Team (Late st Contact Info) Description 10/22/2024 11:00 AM CDT Office Visit [facility] Primary Care [facility] [address] [place] [address] Elissa Ortez PA [address] [facility] [address] [place] [address] documented as of this encounter Visit Diagnoses Not on filedocumented in this encounter Care Teams Nut Grinder Relationship Specialty Start Date End Date Jga Dawson MD PCP - General 07/02/07 documented as of this encounter
--- OUTSIDE RECORDS SUMMARY | 2024-07-17 11:30 | XMS_ITS | Encounter Summary ---
Author Organization [facility] Address 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 Gender Identity Not on file Sexual Orientation Not on file documented as of this encounter Plan of Treatment Upcoming Encounters Date Type Department Care Team (Late st Contact Info) Description 10/22/2024 11:00 AM CDT Office Visit [facility] Primary Care [facility] [address] [facility] [address] [place] [address] Elissa Ortez PA [address] [place] [address] [address] [place] [address] documented as of this encounter Visit Diagnoses Not on filedocumented in this encounter Care Teams Janitor Custodian Relationship Specialty Start Date End Date Jag Dawson MD PCP - General 07/02/07 documented as of this encounter
--- OUTSIDE RECORDS SUMMARY | 2024-07-17 11:30 | XMS_ITS | Encounter Summary ---
Author Organization [facility] Address 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 Gender Identity Not on file Sexual Orientation Not on file documented as of this encounter Last Filed Vital Signs Vital Sign Reading Time Taken Comments Blood Pressure 120/70 03/13/2006 1:30 PM QUALITY ENGINEER MEDICAL DEVICE Pulse - - Temperature 36.6 C (97.9 F) 03/13/2006 1:30 PM QUALITY ENGINEER MEDICAL DEVICE Respiratory Rate - - Oxygen Saturation - - Inhaled Oxygen Concentration - - Weight 104.3 kg (230 lb) 03/13/2006 1:30 PM QUALITY ENGINEER MEDICAL DEVICE Height - - Body Mass Index - - documented in this encounter Plan of Treatment Upcoming Encounters Date Type Department Care Team (Late st Contact Info) Description 10/22/2024 11:00 AM CDT Office Visit [facility] Primary Care [facility] [address] [place] [address] Elissa Ortez PA [address] [facility] [address] [place] [address] documented as of this encounter Visit Diagnoses Not on filedocumented in this encounter Care Teams Endoscopy Registered Nurse Relationship Specialty Start Date End Date Jag Dawson MD PCP - General 07/02/07 documented as of this encounter
--- OUTSIDE RECORDS SUMMARY | 2024-07-17 11:30 | XMS_ITS | Encounter Summary ---
Author Organization [facility] Address 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 Gender Identity Not on file Sexual Orientation Not on file documented as of this encounter Plan of Treatment Upcoming Encounters Date Type Department Care Team (Late st Contact Info) Description 10/22/2024 11:00 AM CDT Office Visit [facility] Primary Care [facility] [address] [facility] [address] [place] [address] Elissa Ortez PA [address] [place] [address] [address] [place] [address] documented as of this encounter Visit Diagnoses Not on filedocumented in this encounter Care Teams Regional Loss Prevention Manager Relationship Specialty Start Date End Date Jag Dawson MD PCP - General 07/02/07 documented as of this encounter
--- OUTSIDE RECORDS SUMMARY | 2024-07-17 11:30 | XMS_ITS | Encounter Summary ---
Author Organization [facility] Address [address] [place] [address] Care Team Providers Care Unit Technician Name Role Phone Jag Dawson MD Primary Care Provider [phone] Encounter Details Date Type Department Care Team (Late Contact Info) Description 02/24/2004 Outpatient Historical [facility] [address] 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 Gender Identity Not on file Sexual Orientation Not on file documented as of this encounter Plan of Treatment Upcoming Encounters Date Type Department Care Team (Late Contact Info) Description 10/22/2024 11:00 AM CDT Office Visit [facility] Primary Care [facility] [address] [address] Elissa Ortez PA [address] [place] [address] [place] [address] documented as of this encounter Visit Diagnoses Not on filedocumented in this encounter Care Teams Unit Technician Relationship Specialty Start Date End Date Jag Dawson MD PCP - General 07/02/07 documented as of this encounter
--- OUTSIDE RECORDS SUMMARY | 2024-07-17 11:30 | XMS_ITS | Encounter Summary ---
Author Organization [facility] [facility] Address 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 Gender Identity Not on file Sexual Orientation Not on file documented as of this encounter Last Filed Vital Signs Vital Sign Reading Time Taken Comments Blood Pressure 130/70 11/15/2003 4:30 PM CDT Pulse - - Temperature - - Respiratory Rate - - Oxygen Saturation - - Inhaled Oxygen Concentration - - Weight 106.6 kg (235 lb) 11/15/2003 4:30 PM CDT Height - - Body Mass Index - - documented in this encounter Plan of Treatment Upcoming Encounters Date Type Department Care Team (Late st Contact Info) Description 10/22/2024 11:00 AM CDT Office Visit [facility] Primary Care [address] [place] [address] Elissa Ortez PA [address] [facility] [address] [place] [address] documented as of this encounter Visit Diagnoses Not on filedocumented in this encounter Care Teams Carbonation Tester Relationship Specialty Start Date End Date Jag Dawson MD PCP - General 07/02/07 documented as of this encounter
--- OUTSIDE RECORDS SUMMARY | 2024-07-17 11:30 | XMS_ITS | Encounter Summary ---
Author Organization [facility] Address 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 Gender Identity Not on file Sexual Orientation Not on file documented as of this encounter Last Filed Vital Signs Vital Sign Reading Time Taken Comments Blood Pressure 122/70 07/23/2006 4:00 PM CDT Pulse - - Temperature - - Respiratory Rate - - Oxygen Saturation - - Inhaled Oxygen Concentration - - Weight 105.2 kg (232 lb) 07/23/2006 4:00 PM CDT Height - - Body Mass Index - - documented in this encounter Plan of Treatment Upcoming Encounters Date Type Department Care Team (Late st Contact Info) Description 10/22/2024 11:00 AM CDT Office Visit [facility] Primary Care [address] [place] [address] Elissa Ortez PA [address] [facility] [address] [place] [address] documented as of this encounter Visit Diagnoses Not on filedocumented in this encounter Care Teams Visual Coordinator Relationship Specialty Start Date End Date Jag Dawson MD PCP - General 07/02/07 documented as of this encounter
--- OUTSIDE RECORDS SUMMARY | 2024-07-17 11:30 | XMS_ITS | Encounter Summary ---
Author Organization [facility] Address 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 [address] D.O.B: 1950 SSN: [id number] Parent/Guardian if applicable: Patient Insurance: [facility] ID#: [id number] Group#: ORDER(S) #: [id number] NCV/emg ...04-25-07 lettter sent BEST TO CALL HOME. MAY WE LEAVE MESSAGE AT THAT NUMBER: YES, LEAVE MESSAGE. PLEASE SCHEDULE THE APPOINTMENT AT THE FOLLOWING LOCATION: [facility] [phone]. TEST PRIORITY: 2 - 7 DAYS. SPECIAL SCHEDULING INSTRUCTIONS: need prep ORDERING PHYSICIAN: AMIRA PRATT MD OFFICE ROUTE DRIVER COIN MACHINES & PHONE: Nayla Layton E FOR SCHEDULING USE ONLY: FIRST ATTEMPT Date:APR 10, 2007 Sheree Vogel A 05:37 p Left Message with Family.-C/B TOMORROW APR 11, 2007 Sheree Vogel A 02:43 p [phone]. APPOINTMENT DATE : 04/16/2007 ( 11AM) The appointment was scheduled by Sheree Vogel A at [phone] APR 11, 2007 Sheree Vogel A 02:43 p Pre-authorization number: NN FINAL ACTION Spoke with patient. Follow up completed. * Amira Pratt MD - 07/16/2007 7:36 PM CDT WEIGHT: 239lbs BLOOD PRESSURE: 130/70 Right Arm Sitting NURSE NAME: Lorena Rollins R TOBACCO USE Patient does not currently use tobacco. CHIEF COMPLAINT Patient here for follow up diabetes, hyperlipidemia. HISTORY: HISTORY: 250.00-DM II CONTROLLED The diabetes remains stable.occ lower rxn with dizzy , tingling fingers relief with eating 272.4-HYPERLIPIDEMIA The patient`s most recent labs reviewed. 401.9-HYPERTENSION, UNSPECIFIED The patient denies chest pain, shortness of breath, dyspnea on exertion, pedal edema, or headache. 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 CARDIAC: No chest pain, palpitations, orthopnea, dyspnea on exertion, or paroxysmal nocturnal dyspnea. RESPIRATORY: No dyspnea, cough, hemoptysis or wheezing. : No dysuria or hematuria. GI: No abdominal pain, nausea, vomiting, diarrhea, constipation, melena, or hematochezia. PAST MEDICAL HISTORY: DM SOCIAL HISTORY: working TOBACCO USE: Has no significant smoking history. 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 PHYSICAL EXAMINATION: CONSTITUTIONAL: GENERAL APPEARANCE: Healthy appearing patient in no distress. EARS, NOSE, MOUTH AND THROAT: ORAL: Normal oropharynx. NECK/THYROID: Trachea midline. No thyroid enlargement, tenderness, or mass. No supraclavicular or cervical adenopathy. RESPIRATORY: Clear to auscultation and percussion. Normal respiratory effort. CARDIOVASCULAR: CARDIAC: Regular rhythm. No murmurs, rubs, or gallops. ARTERIAL: No aortic bruits. EDEMA/VARICOSITIES OF EXTREMITIES: No edema or varicosities. GASTROINTESTINAL: ABDOMEN: Soft, non-tender, without masses. Bowel sounds active. LIVER/SPLEEN/KIDNEY: No hepatosplenomegaly, tenderness or nodularity. Kidneys not palpable. RECTAL: Rectal exam reveals no masses or hemorrhoids, sphincter tone is normal. STOOL/HEMOCCULT: Stool is normal. Stool is hemoccult negative. GENITOURINARY: PROSTATE: 2+ ENLARGED, smooth. MUSCULOSKELETAL EXAM: Tinel pos on left, no m wasting , stain applicator ok SKIN: SKIN: Warm, dry, no diaphoresis, no significant lesions, irritation, rashes or ulcers. No induration, obvious subcutaneous nodules or tightening. ASSESSMENT/PLAN: 250.00-DM II CONTROLLED cont med, enc more frequent monitoring may be able cut actos in 1/2 LAB ORDERS: 3 mo Order number: [id number] Test Ordered: COMPREHENSIVE METABOLIC PANEL & GFR 1112 Order number: [id number] Test Ordered: LIPID PANEL 1078 Order number: [id number] Test Ordered: HEMOGLOBIN A1C 1814 Order number: [id number] Test Ordered: MICROALBUMIN/CREAT, UR RATIO 2252 Order number: [id number] Test Ordered: TSH 1720 272.4-HYPERLIPIDEMIA cont med 401.9-HYPERTENSION, UNSPECIFIED enc diet and ex cont med 354.0-CARPAL TUNNEL SYNDROME try splint at night, reassess LAB ORDERS: jerry Order number: [id number] Test Ordered: NCV/EMG UPPER EXTREMITY LEFT Order number: [id number] Test Ordered: NCV/EMG UPPER EXTREMITY RIGHT 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 LAB ORDERS: Order number: [id number] Test Ordered: HEMOCCULT SINGLE [id number] Patient Education: Risks, benefits, and possible side effects of medication(s) were reviewed with the patient. The patient was allowed to ask questions to stated satisfaction. RETURN VISIT : Patient instructed to return in 3 months. Electronically Signed by: Amira Pratt MD on Sunday, March 25, 2007 documented in this encounter Plan of Treatment Upcoming Encounters Date Type Department Care Team (Late st Contact Info) Description 10/22/2024 11:00 AM CDT Office Visit [facility] Primary Care [facility] [address] [facility] [address] [place] [address] Elissa Ortez PA [address] [place] [facility] [address] [place] [address] documented as of this encounter Visit Diagnoses Not on filedocumented in this encounter Care Teams Salvage Engineering Technician Relationship Specialty Start Date End Date Amira Pratt MD PCP - General 07/02/07 documented as of this encounter
--- OUTSIDE RECORDS SUMMARY | 2024-07-17 11:30 | XMS_ITS | Encounter Summary ---
Author Organization [facility] Address 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 HISTORY: HISTORY: 250.00-DM II CONTROLLED The HgbA1c is at goal. The patient is tolerating the medication. The patient denies polyuria, polyphagia, polydipsia, change in vision, foot ulcerations, or hypoglycemic episodes. 272.4-HYPERLIPIDEMIA The patient is tolerating the medications. The patient's most recent LDL is atgoal. 401.9-HYPERTENSION, UNSPECIFIED The patient is tolerating the medication. 782.1-RASH 1-2 weeks scale itch in dorsum of feet--very itchy PHYSICAL EXAMINATION: CONSTITUTIONAL: GENERAL APPEARANCE: Healthy appearing [...] tenderness or nodularity. Kidneys not palpable. SKIN: dorsum feet plaque like lesions, erythema ASSESSMENT/PLAN: 250.00-DM II CONTROLLED cont med, enc diet and exercise ASSESSMENT: Clinical guidelines reviewed with patient regarding HgbA1c, microalbumin, diabetic retinal exam, diabetic foot exam, need to adhere with diet was emphasized with patient, regular aerobic exercise encouraged, importance of weight loss was emphasized, patient was instructed to monitor bloo d sugar and bring the readings to next appointment. LAB ORDERS: 4 mo Order number: [id number] Test Ordered: COMPREHENSIVE METABOLIC PANEL & GFR 1112 Order number: [id number] Test Ordered: LIPID PANEL 1078 Order number: [id number] Test Ordered: HEMOGLOBIN A1C 1814 272.4-HYPERLIPIDEMIA stable, reviewed, cont med 401.9-HYPERTENSION, UNSPECIFIED cont med, stable, enc wt loss 782.1-RASH fungal vs eczema or psoriasis, rx, reassess--keep clean cotton socks, hibiclens wash daily MEDICATIONS: LOTRISONE EXTERNAL CREAME 1-0.05 %, DIRECTED, 50 Dispensed, status: NEW PRESCRIPTION, 07/23/2006. RETURN VISIT : Instructed to call if not improving. Patient instructed to return in 4 months. Electronically Signed by: Jag Dawson MD on Sunday, July 23, 2006 documented in this encounter Plan of Treatment Upcoming Encounters Date Type Department Care Team (Late st Contact Info) Description 10/22/2024 11:00 AM CDT Office Visit [facility] Primary Care [facility] [address] [facility] [address] [place] [address] Elissa rOtez PA [address] [place] [address] [place] [address] documented as of this encounter Visit Diagnoses Not on filedocumented in this encounter Care Teams Poultry Farm Manager Relationship Specialty Start Date End Date Jag Dawson MD PCP - General 07/02/07 documented as of this encounter
--- OUTSIDE RECORDS SUMMARY | 2024-07-17 11:30 | XMS_ITS | Encounter Summary ---
Author Organization [facility] Address 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 Gender Identity Not on file Sexual Orientation Not on file documented as of this encounter Last Filed Vital Signs Vital Sign Reading Time Taken Comments Blood Pressure 130/70 02/14/2004 4:45 PM MANUFACTURING DIRECTOR Pulse - - Temperature - - Respiratory Rate - - Oxygen Saturation - - Inhaled Oxygen Concentration - - Weight 106.6 kg (235 lb) 02/14/2004 4:45 PM MANUFACTURING DIRECTOR Height - - Body Mass Index - - documented in this encounter Plan of Treatment Upcoming Encounters Date Type Department Care Team (Late st Contact Info) Description 10/22/2024 11:00 AM CDT Office Visit [facility] Primary Care [address] [place] [address] Elissa Ortez PA [address] [facility] [address] [place] [address] documented as of this encounter Visit Diagnoses Not on filedocumented in this encounter Care Teams Cattle Shipper Relationship Specialty Start Date End Date Jag Dawson MD PCP - General 07/02/07 documented as of this encounter
--- OUTSIDE RECORDS SUMMARY | 2024-07-17 11:30 | XMS_ITS | Encounter Summary ---
Author Organization [facility] Address [address] [place] [address] Care Team Providers Care Malt House Kiln Operator Name Role Phone Jag Dawson MD Primary Care Provider [phone] Encounter Details Date Type Department Care Team (Late Contact Info) Description 04/10/2006 Outpatient Historical [facility] Internal Medicine [address] [phone] Jag Dawson MD [address] [place] [address] [address] [place] [address] Social History Tobacco Use Types Packs/Day Years Used Date Smoking Tobacco: Never Assessed Sex and Gender Information Value Date Recorded Sex Assigned at Not on file Legal Sex Male 3:09 AM REGULATORY COMPLIANCE DIRECTOR Gender Identity Not on file Sexual Orientation Not on file documented as of this encounter Last Filed Vital Signs Vital Sign Reading Time Taken Comments Blood Pressure 120/70 04/10/2006 4:30 PM REGULATORY COMPLIANCE DIRECTOR Pulse - - Temperature - - Respiratory Rate - - Oxygen Saturation - - Inhaled Oxygen Concentration - - Weight 105.2 kg (232 lb) 04/10/2006 4:30 PM REGULATORY COMPLIANCE DIRECTOR Height - - Body Mass Index - - documented in this encounter Plan of Treatment Upcoming Encounters Date Type Department Care Team (Late st Contact Info) Description 10/22/2024 11:00 AM CDT Office Visit [facility] Primary Care [address] [place] [address] Elissa Ortez PA [address] [facility] [address] [place] [address] documented as of this encounter Visit Diagnoses Not on filedocumented in this encounter Care Teams Malt House Kiln Operator Relationship Specialty Start Date End Date Jag Dawson MD PCP - General 07/02/07 documented as of this encounter
--- OUTSIDE RECORDS SUMMARY | 2024-07-17 11:30 | XMS_ITS | Encounter Summary ---
Author Organization [facility] Address [address] [facility] [address] [place]: Epic Prel[place] [address] Care Team Providers Care Sisal Picker Name Role Phone Jag Dawson MD Primary Care Provider [phone] Encounter Details Date Type Department Care Team (Late st Contact Info) Description 10/07/1990 Outpatient Historical Javed Pal MD NO ADDRESS ON FILE Social History Tobacco Use Types Packs/Day Years Used Date Smoking Tobacco: Never Assessed Sex and Gender Information Value Date Recorded Sex Assigned at Not on file Legal Sex Male 3:09 AM OFFSET PRESS ASSISTANT Gender Identity Not on file Sexual Orientation Not on file documented as of this encounter Plan of Treatment Upcoming Encounters Date Type Department Care Team (Late st Contact Info) Description 10/22/2024 11:00 AM CDT Office Visit [facility] Primary Care [facility] [address] [place] [address] Elissa Ortez PA [address] [place] [address] [place] [address] documented as of this encounter Visit Diagnoses Not on filedocumented in this encounter Care Teams Sisal Picker Relationship Specialty Start Date End Date Jag Dawson MD PCP - General 07/02/07 documented as of this encounter
--- OUTSIDE RECORDS SUMMARY | 2024-07-17 11:30 | XMS_ITS | Encounter Summary ---
Author Organization [facility] Address [address] [place] [address] Care Team Providers Care Application Spec Name Role Phone Jag Dawson MD Primary Care Provider Encounter Details Date Type Department Care Team (Late st Contact Info) Description 08/14/2004 Outpatient Historical [facility] Internal Medicine [address] [address] Jag Dawson MD [address] [facility] [address] [place] [address] Social History Tobacco Use Types Packs/Day Years Used Date Smoking Tobacco: Never Assessed Sex and Gender Information Value Date Recorded Sex Assigned at Not on file Legal Sex Male 3:09 AM LICENSE EXAMINER Gender Identity Not on file Sexual Orientation Not on file documented as of this encounter Plan of Treatment Upcoming Encounters Date Type Department Care Team (Late st Contact Info) Description 10/22/2024 11:00 AM CDT Office Visit [facility] Primary Care [facility] [address] [facility] [address] [place] [address] Elissa Ortez PA [address] [place] [address] [address] [place] [address] documented as of this encounter Visit Diagnoses Not on filedocumented in this encounter Care Teams Application Spec Relationship Specialty Start Date End Date Jag Dawson MD PCP - General 07/02/07 documented as of this encounter
--- OUTSIDE RECORDS SUMMARY | 2024-07-17 11:30 | XMS_ITS | Encounter Summary ---
Author Organization [facility] Address [address] [place] [address] Care Team Providers Care Medical Radiation Tech Name Role Phone Jag Dawson MD Primary Care Provider [phone] Encounter Details Date Type Department Care Team (Late Contact Info) Description 11/13/2004 Outpatient Historical [facility] Internal Medicine [address] [phone] Jag Dawson MD [address] [place] [address] [address] [place] [address] Social History Tobacco Use Types Packs/Day Years Used Date Smoking Tobacco: Never Assessed Sex and Gender Information Value Date Recorded Sex Assigned at Not on file Legal Sex Male 3:09 AM CAREER COUNSELOR Gender Identity Not on file Sexual Orientation Not on file documented as of this encounter Last Filed Vital Signs Vital Sign Reading Time Taken Comments Blood Pressure 130/70 11/13/2004 4:15 PM CDT Pulse - - Temperature - - Respiratory Rate - - Oxygen Saturation - - Inhaled Oxygen Concentration - - Weight 104.8 kg (231 lb) 11/13/2004 4:15 PM CDT Height - - Body Mass Index - - documented in this encounter Plan of Treatment Upcoming Encounters Date Type Department Care Team (Late st Contact Info) Description 10/22/2024 11:00 AM CDT Office Visit [facility] Primary Care [address] [place] [address] Elissa Ortez PA [address] [facility] [address] [place] [address] documented as of this encounter Visit Diagnoses Not on filedocumented in this encounter Care Teams Medical Radiation Tech Relationship Specialty Start Date End Date Jag Dawson MD PCP - General 07/02/07 documented as of this encounter
--- OUTSIDE RECORDS SUMMARY | 2024-07-17 11:30 | XMS_ITS | Encounter Summary ---
Author Organization [facility] Address [address] [place] [address] Care Team Providers Care Fruit Or Nut Farmworker Name Role Phone Jag Dawson MD Primary Care Provider [phone] Encounter Details Date Type Department Care Team (Late Contact Info) Description 11/26/2006 Outpatient Historical [facility] Internal Medicine [address] [address] Jag Dawson MD [address] [place] [address] [address] [place] [address] Social History Tobacco Use Types Packs/Day Years Used Date Smoking Tobacco: Never Assessed Sex and Gender Information Value Date Recorded Sex Assigned at Not on file Legal Sex Male 3:09 AM HORSESHOER Gender Identity Not on file Sexual Orientation Not on file documented as of this encounter Last Filed Vital Signs Vital Sign Reading Time Taken Comments Blood Pressure 130/70 11/26/2006 4:15 PM CDT Pulse - - Temperature - - Respiratory Rate - - Oxygen Saturation - - Inhaled Oxygen Concentration - - Weight 108 kg (238 lb) 11/26/2006 4:15 PM CDT Height - - Body Mass Index - - documented in this encounter Plan of Treatment Upcoming Encounters Date Type Department Care Team (Late Contact Info) Description 10/22/2024 11:00 AM CDT Office Visit [facility] Primary Care [address] [place] [address] Elissa Ortez PA [address] [facility] [address] [place] [address] documented as of this encounter Visit Diagnoses Not on filedocumented in this encounter Care Teams Fruit Or Nut Farmworker Relationship Specialty Start Date End Date Jag Dawson MD PCP - General 07/02/07 documented as of this encounter
--- OUTSIDE RECORDS SUMMARY | 2024-07-17 11:30 | XMS_ITS | Encounter Summary ---
Author Organization [facility] Address [address] [place] [address] Care Team Providers Care Offshore Wind Turbine Technician Name Role Phone Jag Dawson MD Primary Care Provider Encounter Details Date Type Department Care Team (Late st Contact Info) Description 03/25/2007 Outpatient Historical [facility] Internal Medicine [address] [address] Jag Dawson MD [address] [facility] [address] [place] [address] Social History Tobacco Use Types Packs/Day Years Used Date Smoking Tobacco: Never Assessed Sex and Gender Information Value Date Recorded Sex Assigned at Not on file Legal Sex Male 3:09 AM PROCESS ENGINEER Gender Identity Not on file Sexual Orientation Not on file documented as of this encounter Plan of Treatment Upcoming Encounters Date Type Department Care Team (Late st Contact Info) Description 10/22/2024 11:00 AM CDT Office Visit [facility] Primary Care [facility] [address] [facility] [address] [place] [address] Elissa Ortez PA [address] [place] [address] [address] [place] [address] documented as of this encounter Visit Diagnoses Not on filedocumented in this encounter Care Teams Offshore Wind Turbine Technician Relationship Specialty Start Date End Date Jag Dawson MD PCP - General 07/02/07 documented as of this encounter
--- OUTSIDE RECORDS SUMMARY | 2024-07-17 11:30 | XMS_ITS | Encounter Summary ---
Author Organization [facility] Address [address] [place] [address] Care Team Providers Care Dairy Cattle Farm Worker Name Role Phone Jag Dawson MD Primary Care Provider [phone] Reason for Visit * Reason Comments Provider Call Encounter Details Date Type Department Care Team (Late st Contact Info) Description 06/26/2024 Telephone [facility] Primary Care [address] [place] [address] Jag Dawson MD [address] [place] [address] [address] [place] [address] Provider Call Social History Tobacco Use Types Packs/Day Years Used Date Smoking Tobacco: Never Passive Smoke Exposure: Never Smokeless Tobacco: Never Alcohol Use Standard [...] often do you attend chur ch or methodist services? 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 Providedpatient full name, , last visit date and contact numbers to reach patient. Advised to call back if any questions. * Telephone Encounter - Zaida Beauchamp - 06/26/2024 2:22 PM CDT Copied from [facility] #[id number]. Topic: [id number] Call >> Jun 26, 2024 2:20 PM Zaida Brownlee wrote: Caller is requesting to speak with Clinical Care Team. Caller Name: nayla [place] advantage Callback Number: [id number] Clinician Type: Other healthcare professional not listed above Call Notes: please give last name of pt if having to leave a vm as well as would like pts last visit and contact information Is this addressing an immediate patient care need? No documented in this encounter Plan of Treatment Upcoming Encounters Date Type Department Care Team (Late st Contact Info) Description 10/22/2024 11:00 AM CDT Office Visit [facility] Primary Care [facility] [address] [facility] [address] [place] [address] Elissa Ortez PA [address] [place] [facility] [address] [place] [address] documented as of this encounter Visit Diagnoses Not on filedocumented in this encounter Care Teams Dairy Cattle Farm Worker Relationship Specialty Start Date End Date Jag Dawson MD PCP - General 07/02/07 documented as of this encounter
--- OUTSIDE RECORDS SUMMARY | 2024-07-17 11:30 | XMS_ITS | Encounter Summary ---
Author Organization [facility] Address 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 [address] [place] [address] Elissa Ortez PA [address] [place] [address] [address] [place] [address] documented as of this encounter Visit Diagnoses Not on filedocumented in this encounter Care Teams Breakfast And Room Attendant Relationship Specialty Start Date End Date Jag Dawson MD PCP - General 07/02/07 documented as of this encounter
--- OUTSIDE RECORDS SUMMARY | 2024-07-17 11:30 | XMS_ITS | Encounter Summary ---
Author Organization [facility] Address [address] [place] [address] Care Team Providers Care Tombstone Erector Helper Name Role Phone Jag Dawson MD Primary Care Provider [phone] Encounter Details Date Type Department Care Team (Late Contact Info) Description 02/21/2005 Outpatient Historical [facility] Internal Medicine [address] [address] Jag Dawson MD [address] [place] [address] [address] [place] [address] Social History Tobacco Use Types Packs/Day Years Used Date Smoking Tobacco: Never Assessed Sex and Gender Information Value Date Recorded Sex Assigned at Not on file Legal 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 Gender Identity Not on file Sexual Orientation Not on file documented as of this encounter Last Filed Vital Signs Vital Sign Reading Time Taken Comments Blood Pressure 130/70 02/21/2005 4:30 PM TRIAGE REGISTER NURSE Pulse - - Temperature - - Respiratory Rate - - Oxygen Saturation - - Inhaled Oxygen Concentration - - Weight 104.3 kg (230 lb) 02/21/2005 4:30 PM TRIAGE REGISTER NURSE Height - - Body Mass Index - - documented in this encounter Plan of Treatment Upcoming Encounters Date Type Department Care Team (Late st Contact Info) Description 10/22/2024 11:00 AM CDT Office Visit [facility] Primary Care [address] [place] [address] Elissa Ortez PA [address] [facility] [address] [place] [address] documented as of this encounter Visit Diagnoses Not on filedocumented in this encounter Care Teams Tombstone Erector Helper Relationship Specialty Start Date End Date Jag Dawson MD PCP - General 07/02/07 documented as of this encounter
--- OUTSIDE RECORDS SUMMARY | 2024-07-17 11:30 | XMS_ITS | Encounter Summary ---
Author Organization [facility] Address 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 Gender Identity Not on file Sexual Orientation Not on file documented as of this encounter Last Filed Vital Signs Vital Sign Reading Time Taken Comments Blood Pressure 150/82 10/17/2005 3:30 PM CDT Pulse - - Temperature 36.7 C (98.1 F) 10/17/2005 3:30 PM CDT Respiratory Rate - - Oxygen Saturation - - Inhaled Oxygen Concentration - - Weight 99.8 kg (220 lb) 10/17/2005 3:30 PM CDT Height - - Body Mass Index - - documented in this encounter Plan of Treatment Upcoming Encounters Date Type Department Care Team (Late st Contact Info) Description 10/22/2024 11:00 AM CDT Office Visit [facility] Primary Care [facility] [address] [place] [address] Elissa Ortez PA [address] [address] [place] [address] documented as of this encounter Visit Diagnoses Not on filedocumented in this encounter Care Teams Dispatcher Chief Coal Slurry Relationship Specialty Start Date End Date Jag Dawson MD PCP - General 07/02/07 documented as of this encounter
--- OUTSIDE RECORDS SUMMARY | 2024-07-17 11:30 | XMS_ITS | Clinical Summary ---
Author Organization [facility] Address [address] [place] [address] Care Team Providers Care Rn Lactation Name Role Phone Jag Dawson MD Primary Care Provider [phone] Allergies Active Allergy Reactions Criticality Noted Date Comments No Known Allergies 05/07/2003 Medications blood sugar diagnostic (ONETOUCH VERIO) Strip Check blood sugar once daily. Dx E11.9, non insulin use. Verio test strips. 100 Each 11 019 Active meclizine (ANTIVERT) 25 mg tablet Take 1 Tablet (25 mg) by mouth 3 times daily as needed for Dizziness. 30 Tablet 2 021 Active Additional Information Patient not taking.Reported on 06/22/2024 Insulin [place], Disposable, (Oksana Pen Needle) 32 gauge x 5/32 NeedleIndications :Type 2 diabetes mellitus without complication, with long-term current use of insulin ([facility]) USE 1 DAILY. 100 Each 3 023 Active Additional Information Patient not taking.Reported on 06/22/2024 naproxen (NAPROSYN) 500 mg tablet Take 1 Tablet (500 mg) by mouth 1 time daily as needed for Pain, Moderate. 30 Tablet 3 023 Active Additional Information Patient not taking.Reported on 06/22/2024 Insulin Syringe-Needle U-100 (BD Lo-Dose Ultra-Fine) 0.3 mL 29 gauge x 1/2 Syringe 1 Syringe 2 times daily. 200 Each 3 2 023 Active sildenafiL (Viagra) 100 mg tablet Take 1 Tablet (100 mg) by mouth 1 time daily as needed (ED). 10 Tablet 3 023 Active lancets (One Touch Delica) 33 gaugeIndications: Type 2 diabetes mellitus without complication, with long-term current use of insulin ([facility]) Check Blood sugar once daily. Dx E11.9, non insulin use 100 Each 4 023 Active sildenafiL (Viagra) 100 mg tablet Take 1 Tablet (100 mg) by mouth 1 time daily as needed for Erectile Dysfunction. 30 Tablet 3 023 Active aspirin (ECOTRIN EC) 81 mg Tablet, Delayed Release (E.C.) Take 1 Tablet (81 mg) by mouth daily. 90 Tablet 3 024 Active Myrbetriq 25 mg Extended Release 24 hour tablet take 1 tablet by mouth once a day 100 Tablet 3 024 Active empagliflozin (Jardiance) 25 mg tablet Take 1 Tablet (25 mg) by mouth daily in the morning. 100 Tablet 3 024 Active tamsulosin (FLOMAX) 0.4 mg capsule Take 1 Capsule (0.4 mg) by mouth daily. 100 Capsule 3 024 Active semaglutide (Ozempic) 0.25 mg or 0.5 mg (2 mg/3 mL) Pen Injector Inject 0.25 mg by subcutaneous injection every 7 days. 9 mL 3 024 Active sertraline (ZOLOFT) 25 mg tablet take 1 tablet by mouth every day 90 Tablet 2 024 Active omeprazole (PriLOSEC) 40 mg Capsule, Delayed Release(E.C.) take 1 capsule by mouth every day 90 Capsule 2 024 Active Blood-Glucose Sensor (FreeStyle Robert 3 Sensor) Device Use to monitor glucose continuously. Apply a sensor every 14 days. 1 Each 024 Active metFORMIN (GLUCOPHAGE XR) 500 mg Extended Release 24 hour tablet TAKE 4 TABLETS BY MOUTH ONCE A DAY WITH BREAKFAST 400 Tablet 3 025 Active ezetimibe (ZETIA) 10 mg tablet TAKE 1 TABLET BY MOUTH ONCE A DAY 100 Tablet 3 025 Active atorvastatin (LIPITOR) 20 mg tabletIndications :Other hyperlipidemia TAKE 1 TABLET BY MOUTH ONCE A DAY (LATE IN THE DAY). 90 Tablet 4 025 Active lisinopriL (PRINIVIL) 2.5 mg tabletIndications :Essential hypertension TAKE 1 TABLET BY MOUTH ONCE A DAY 90 Tablet 4 025 Active celecoxib (CeleBREX) 200 mg capsule TAKE 1 CAPSULE BY MOUTH TWICE A DAY 60 Capsule 3 025 Active pioglitazone (Actos) 15 mg tablet Take 1 Tablet (15 mg) by mouth daily with breakfast. 100 Tablet 3 025 Active insulin glargine (Lantus Solostar U-100 Insulin) 100 unit/mL pen syringe Inject 40 Units by subcutaneous injection daily. 15 mL 6 025 Active celecoxib (CeleBREX) 200 mg capsule TAKE 1 CAPSULE BY MOUTH 2 TIMES DAILY. 60 Capsule 3 024 2024 Discontinued insulin glargine (Lantus Solostar U-100 Insulin) 100 unit/mL pen syringe Inject 35 Units by subcutaneous injection daily. 15 mL 6 025 2024 Discontinued(R eorder) insulin glargine (Lantus Solostar U-100 Insulin) 100 unit/mL pen syringe Inject 40 Units by subcutaneous injection daily. 15 mL 6 025 2024 Discontinued(R eorder) acarbose (PRECOSE) 25 mg tablet Take 1 Tablet (25 mg) by mouth 3 times daily with meals. 300 Tablet 3 025 2024 Discontinued pioglitazone (Actos) 15 mg tablet Take 1 Tablet (15 mg) by mouth daily with breakfast. 100 Tablet 3 025 2024 Discontinued(R eorder) insulin glargine (Lantus Solostar U-100 Insulin) 100 unit/mL pen syringe Inject 40 Units by subcutaneous injection daily. 15 mL 6 025 2024 Discontinued(R eorder) Active Problems Patient Care Coordination No te Formatting of this note migh t be different from the original. [id number] 03/12/22 [id number] 06/22/24 Problem Noted Date Diagnosed Date Carotid artery plaque, bilateral 06/07/2023 Anxiety state 06/07/2023 Essential tremor 09/08/2021 Tremor 02/28/2021 Kidney stones 02/28/2021 BPH with elevated PSA 05/13/2018 Obesity (BMI 30-39.9) 03/07/2016 Carpal tunnel syndrome 03/25/2007 Hyperlipemia 05/10/2003 Type 2 diabetes mellitus wit hout complication, with long-term current use of insulin 05/07/2003 Essential hypertension 05/07/2003 Osteoarthritis 05/07/2003 Resolved Problems Problem Noted Date Diagnosed Date Resolved Date Unspecified disorder of prostate 03/25/2007 08/10/2022 Special screening for malign ant neoplasms, colon 03/25/2007 07/02/2007 Rash and other nonspecific skin eruption 07/23/2006 07/02/2007 Acute sinusitis, unspecified 03/13/2006 07/02/2007 Oral aphthae 03/13/2006 07/02/2007 Acute pharyngitis 10/17/2005 07/02/2007 Cervicalgia 10/17/2005 07/02/2007 Esophageal reflux 08/15/2005 07/02/2007 Special screening for malign ant neoplasm of prostate 02/21/2005 07/02/2007 Need for prophylactic vaccin ation with tetanus-diphtheria (Td) 08/14/2004 07/02/2007 Need for prophylactic vaccin ation against Streptococcus pneumoniae (pneumococcus) 08/14/2004 07/02/2007 Encounters Date Type Department Care Team Description 07/07/2024 External Device Data [facility] Provider, Abstract 07/07/2024 Telephone [place] [address] [facility] [address] [place] [phone] Jag Dawson MD Medication Refill; Patient Communication 06/26/2024 Telephone [place] [address] [place] [address] Jag Dawson MD Provider Call 06/23/2024 Abstract [place] [address] [facility] [address] [place] [phone] Jag Dawson MD 06/22/2024 10:20 AM CDT Office Visit [place] [address] [facility] [address] [place] [phone] Jag Dawson MD Essential hypertension (Primary Dx); Type 2 diabetes mellitus without complication, with long-term current use of insulin ([facility]); Other hyperlipidemia; Enlarged prostate with urinary obstruction; Neck pain 06/20/[address] [place] [address] Jag Dawson MD 06/12/[address] [place] [address] Jag Dawson MD 06/12/[address] [place] [address] Jag Dawson MD Other hyperlipidemia; Essential hypertension 06/03/[address] [place] [address] Provider, Abstract 05/12/2024 Orders Only [address] [place] [address] Jag Dawson MD Bilateral ocular hypertension (Primary Dx) 05/12/2024 Orders Only [address] [place] [phone] Jag Dawson MD Elevated prostate specific antigen (PSA) (Primary Dx) 05/06/2024 External Device Data [facility] Provider, Abstract 04/22/2024 External Device Data [facility] Provider, Abstract 04/21/[address] [place] [phone] Jag Dawson MD Medication Assistance from Last 3 Months Immunizations Immunization Administration Dates Next Due (ADACEL/BOOSTRIX)(10 YR UP) TDAP VACCINE, 0.5ML, IM 03/25/2013 (AREXVY)(60 YR UP) RSV, KATHI MBINANT, PROTEIN SUBUNIT RSVPREF, ADJUVANT RECONSTITUTED, 0.5 ML, PF 01/29/2023 (COMIRNATY)(12 YR UP) COVID- 19 VACCINE, MRNA, SPIKE PROTEIN, LNP, SYDNEE(PF) 30 MCG/0.3 ML IM SUSP 12/03/2023 (PFIZER)(12 YR UP) COVID-19 VACCINE - EMERGENCY USE AUTHORIZATION, MRNA, [id number](PF) 30 MCG/0.3 ML IM SUSP 01/11/2021,05/25/2020,05/03/2020 (PNEUMOVAX 23)(50 YRS UP) PN EUMOCOCCAL POLYSACCHARIDE (PPV23) 0.5 ML, IM 03/31/2019,08/14/2004,01/13/1999 (PREVNAR 13)(6 WKS UP) PNEUM OCOCCAL CONJUGATE (PCV13) 0.5 ML, IM 03/25/2015 (Pfizer Bivalent)(12 Yr Up) COVID-19 Vaccine - Emergency Use Authorization, MRNA, Lnp-S(Pf) 30 Mcg/0.3 Ml Susp 12/21/2021 (SPIKEVAX)(12 YRS AND UP)COV ID-19 VACCINE, MRNA, LNP-S(PF) 50 MCG/0.5 ML IM SUSPENCY USE AUTHORIZATION, RECOMBINANT-ADJ(PF) 5 MCG/0.5 ML IM SUSP 01/29/2023 (TDVAX)(7 YRS UP) TETANUS AN D DIPHTHERIA TOXOIDS, ADSORBED (2 LF OF TETANUS TOXOID AND 2 LF OF DIPHTHERIA TOXOID), 0.5ML (PF), IM 08/14/2004,09/01/1994 INFLUENZA VACCINE HIGH DOSE QUADRIVALENT 65 YR UP PF IM 12/07/2022,12/02/2021 INFLUENZA VACCINE HIGH DOSE TRIVALENT SPLIT VIRUS, (65 YR UP), 0.5ML (PF), IM 12/03/2023 Influenza Seasonal Unspecifi ed Formulation IM 11/30/2015,11/10/2014,11/26/2013,11/19,12/03/2011,12/06/2009,11/16/2008 Influenza Vaccine High Dose 65+ Yrs IM 1 03/13/2020,01/16/2020,12/02/2018,11/29,11/29/2016 Zoster Vaccine Live SQ 10/21/2014 Family History Medical History Relation Name Comments Other Brother CP Other Father cp Diabetes Mother Diabetes Sister Healthy Son 1 Healthy Son 2 Relation Name Status Comments Brother Alive Father Mother Sister Alive Son 1 Alive Son 2 Alive Social History Tobacco Use Types Packs/Day Years Used Date Smoking Tobacco: Never Passive Smoke Exposure: Never Smokeless Tobacco: Never Tobacco Cessation:Counseling Given: No Alcohol Use Standard Drinks/Week Comments Yes 1.7 [...] often do you attend chur ch or sabianist services? 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 Gender Identity Not on file Sexual Orientation Not on file Occupation Industry Job Start Date Job End Date RETIRED Not on file Not on file Not on file Last Filed Vital Signs Vital Sign Reading Time Taken Comments Blood Pressure 110/58 06/22/2024 10:10 AM CDT Pulse 72 06/22/2024 10:10 AM CDT Temperature 36.4 C (97.5 F) 12/07/2022 11:38 AM CDT Respiratory Rate 16 08/10/2022 1:16 PM CDT Oxygen Saturation 94% 06/22/2024 10:10 AM CDT Inhaled Oxygen Concentration - - Weight 96 kg (211 lb 9.6 oz) 06/22/2024 10:10 AM CDT Height 175.3 cm (5' 9 ) 06/22/2024 10:10 AM CDT Body Mass Index 31.25 06/22/2024 10:10 AM CDT Plan of Treatment Upcoming Encounters Date Type Department Care Team (Late st Contact Info) Description 10/22/2024 11:00 AM CDT Office Visit [facility] Care [facility] [address] [facility] [address] [place] [address] Elissa Ortez PA [address] [facility] [address] [place] [phone] Health Maintenance Due Date Last Done Comments FIT/ DNA Q 3 YEARS (AUTO ORDER) 1967 FIT/FOBT Q 1 YEAR (AUTO ORDER) 1967 FIT-DNA Q 3 years 1994 FIT/FOBT Q 1 year 1994 Flex Sig/CT Colonography Q 5 years 1994 ZOSTER VACCINE (2 of 3) 12/16/2014 10/21/2014 FLEX SIG/CT COLONOGRAPHY Q 5 YEARS (AUTO ORDER) 04/20/2021 04/20/2016, 04/20/2016 DTAP/TDAP/TD VACCINES (2 - T d or Tdap) 03/25/2023 03/25/2013, 08/14/2004, 09/01/1994 WILLIAM uA (Auto Order) 03/04/2024 06/04/2023 , 03/09/2022, 02/23/2021, Additional history exists COVID-19 Vaccine (2023-2 5 season) 2024 12/03/2023, 01/29/2023, 12/21/2021, Additional history exists DIABETES MICROALBUMIN ANNUAL SCREEN 06/03/2024 06/04/2023, 03/09/2022, 02/23/2021, Additional history exists DIABETES ANNUAL RETINAL EXAM 09/08/202410/2023, 09/09/2023, 05/13/2023, Additional history exists DIABETES: A1C (Auto Order) 09/15/202406/16, 01/22/2024, 10/03/2023, Additional history exists DIABETES ANNUAL FOOT EXAM 10/06/20242023, 03/12/2022, 06/15/2020, Additional history exists DIABETES HBA1C Q 6 MONTHS 12/16/20242024, 01/22/2024, 10/03/2023, Additional history exists LDL CHOLESTEROL ANNUAL 06/16/2025 , 01/22/2024, 10/03/2023, Additional history exists COLORECTAL CANCER SCREENING (AUTO ORDER) 04/20/2026 04/20/2016, 04/20/2016, 04/20/2016, Additional history exists COLORECTAL SCREENING 04/20/2026 04/20/2016, 04/20/2016, 04/20/2016, Additional history exists Colorectal Cancer Screening (AUTO ORDER) 04/20/2026 Colorectal Cancer Screening 04/20/2026 PNEUMOCOCCAL VACCINE 50+ YEARS Completed 0 03/31/2019, 03/25/2015, 08/14/2004, Additional history exists RSV VACCINE (60+ or ) Completed 01/29/2023 INFLUENZA VACCINE Completed 12/03/2023, , 12/02/2021, Additional history exists KHE eGFR (Auto Order) Completed 06/16/2024 , 01/22/2024, 10/03/2023, Additional history exists Medicare Ad[place]age ([place]) Preventative Visit/Annual Wellness Visit Completed 06/22/2024, 06/07/2023, 03/12/2022, Additional history exists Procedures Procedure Name Priority Date/Time Associated Diagnosis Comments TSH Routine 06/16/2024 9:18 AM CDT Other hyperlipidemia PSA Routine 06/16/2024 9:18 AM CDT Elevated PSA LIPID PANEL Routine 06/16/2024 9:18 AM CDT Other hyperlipidemia HEMOGLOBIN A1C Routine 06/16/2024 9:18 AM CDT Type 2 diabetes mellitus without complication, with long-term current use of insulin ([facility]) COMPREHENSIVE METABOLIC PANEL Routine 06/16/2024 9:18 AM CDT Other hyperlipidemia CBC WITH DIFFERENTIAL Routine 06/16/2024 9:18 AM CDT Essential hypertension HM DIABETES EYE EXAM Routine 09/09/2023 3:39 PM CDT MICROALBUMIN/CREATINI NE RATIO, RANDOM UR Routine 06/04/2023 8:26 AM CDT Type 2 diabetes mellitus without complication, with long-term current use of insulin ([facility]) ENDOSCOPY, COLON, SCREENING Routine 04/20/2016 from Last 3 Months or Most Recently Relevant to Health Maintenance Results * CBC WITH DIFFERENTIAL (06/16/2024 9:18 AM CDT) WBC 7.1 3.8 - 10.8 Thousand/u L [facility] RBC 5.15 4.20 - 5.80 Million/uL [facility] HEMOGLOBIN 15.2 13.2 - 17.1 g/dL [facility] HEMATOCRIT 45.7 38.5 - 50.0 % [facility] MCV 88.7 80.0 - 100.0 fL [facility] MCH 29.5 27.0 - 33.0 pg [facility] MCHC 33.3 32.0 - 36.0 g/dL [facility] Comment: For adults, a slight decrease in the calculated MCHC value (in the range of 30 to 32 g/dL) is most likely not clinically significant; however, it should be interpreted with caution in correlation with other red cell parameters and the patient's clinical condition. RDW 12.3 11.0 - 15.0 % [facility] PLATELETS 284 140 - 400 Thousand/u L [facility] MPV 10.6 7.5 - 12.5 fL [facility] NEUTROPHIL ABSOLUTE 4,359 1,500 - 7,800 cells/uL [facility] LYMPHOCYTE ABSOLUTE 1,924 850 - 3,900 cells/uL [facility] MONOCYTE ABSOLUTE 504 200 - 950 cells/uL [facility] EOSINOPHIL ABSOLUTE 270 15 - 500 cells/uL [facility] BASOPHILS ABSOLUTE 43 0 - 200 cells/uL [facility] NEUTROPHIL 61.4 % [facility] LYMPHOCYTES 27.1 % [facility] MONOCYTE 7.1 % [facility] EOSINOPHILS 3.8 % [facility] BASOPHILS 0.6 % [facility] Comment: FASTING:YES FASTING: YES Test Performed at: [facility] [address] Caitlin Puri MD Blood 06/16/2024 9:18 AM CDT 06/16/2024 9:19 AM CDT us Jag Dawson MD HEMATOLOGY ORDERABLES Final R esult [facility] [phone] [address] * TSH (06/16/2024 9:18 AM CDT) TSH 1.72 0.40 - 4.50 mIU/L [facility] Comment: Test Performed at: [facility] [address] Caitlin Puri MD Blood 06/16/2024 9:18 AM CDT 06/16/2024 9:19 AM CDT us Jag Dawson MD CHEMISTRY ORDERABLES Final Re sult [facility] [phone] [facility] [place] [address] * (ABNORMAL) PSA (06/16/2024 9:18 AM CDT) PSA 5.79(H) < OR = 4.00 ng/mL [facility] Comment: The total PSA value from this assay system is standardized against the WHO standard. The test result will be approximately 20% lower when compared to the equimolar-standardized total PSA (Ethan Tori). Comparison of serial PSA results should be interpreted with this fact in mind. This test was performed using the Siemens chemiluminescent method. Values obtained from different assay methods cannot be used interchangeably. PSA levels, regardless of value, should not be interpreted as absolute evidence of the presence or absence of disease. FASTING:YES FASTING: YES Test Performed at: [facility] [address] Caitlin Puri MD Blood 06/16/2024 9:18 AM CDT 06/16/2024 9:19 AM CDT us Jag Dawson MD CHEMISTRY ORDERABLES Final Re sult [facility] [phone] [facility] [address] * (ABNORMAL) HEMOGLOBIN A1C (06/16/2024 9:18 AM CDT) HEMOGLOBIN A1C 9.5(H) <5.7 % of total Hgb [facility] Comment: For someone without known diabetes, a hemoglobin A1c value of 6.5% or greater indicates that they may have diabetes and this should be confirmed with a follow-up test. For someone with known diabetes, a value <7% indicates that their diabetes is well controlled and a value greater than or equal to 7% indicates suboptimal control. A1c targets should be individualized based on duration of diabetes, age, comorbid conditions, and other considerations. Currently, no consensus exists regarding use of hemoglobin A1c for diagnosis of diabetes for children. ESTIMATED AVERAGE GLUCOSE (MG/DL) 226 mg/dL [facility] ESTIMATED AVERAGE GLUCOSE (MMOL/L) 12.5 mmol/L [facility] Comment: FASTING:YES FASTING: YES Test Performed at: [facility] [address] [place] [address] Caitlin Puri Blood 06/16/2024 9:18 AM CDT 06/16/2024 9:19 AM CDT us Jag Dawson MD CHEMISTRY ORDERABLES Final Re sult [facility] [phone] [facility] [address] [place] [address] * LIPID PANEL (06/16/2024 9:18 AM CDT) CHOLESTEROL 123 <200 mg/dL [facility] HDL 55 > OR = 40 mg/dL [facility] TRIGLYCERIDE 55 <150 mg/dL [facility] LDL CALCULATED 54 mg/dL (calc) [facility] Comment: Reference range: <100 Desirable range <100 mg/dL for primary prevention; <70 mg/dL for patients with CHD or diabetic patients with > or = 2 CHD risk factors. LDL-C is now calculated using the Jae-Angela calculation, which is a validated novel method providing better accuracy than the Friedewald equation in the estimation of LDL-C. Jae CASTRO et al. MYRIAM. 2013;310(19): 1032-4714 (http://education.HW/faq/DHE219) CHOL/HDL RATIO 2.2 <5.0 (calc) [facility] NON-HDL CHOLESTEROL 68 <130 mg/dL (calc) [facility] Comment: For patients with diabetes plus 1 major ASCVD risk factor, treating to a non-HDL-C goal of <100 mg/dL (LDL-C of <70 mg/dL) is considered a therapeutic option. Test Performed at: [facility] [address] [phone] Caitlin Puri MD Blood 06/16/2024 9:18 AM CDT 06/16/2024 9:19 AM CDT us Jag Dawson MD CHEMISTRY ORDERABLES Final Re sult [facility] [phone] [facility] [address] [phone] * (ABNORMAL) COMPREHENSIVE METABOLIC PANEL (06/16/2024 9:18 AM CDT) GLUCOSE 159(H) 65 - 99 mg/dL [facility] Comment: Fasting reference interval For someone without known diabetes, a glucose value >125 mg/dL indicates that they may have diabetes and this should be confirmed with a follow-up test. BUN 19 7 - 25 mg/dL [facility] CREATININE 0.77 0.70 - 1.28 mg/dL [facility] GFR 93 > OR = 60 mL/min/1. 73m2 [facility] BUN/CREAT RATIO SEE NOTE: 6 - 22 (calc) [facility] Comment: Not Reported: BUN and Creatinine are within reference range. SODIUM 139 135 - 146 mmol/L [facility] POTASSIUM 4.8 3.5 - 5.3 mmol/L [facility] CHLORIDE 104 98 - 110 mmol/L [facility] CO2 27 20 - 32 mmol/L [facility] CALCIUM 9.4 8.6 - 10.3 mg/dL [facility] TOTAL PROTEIN 6.8 6.1 - 8.1 g/dL [facility] ALBUMIN 4.3 3.6 - 5.1 g/dL [facility] GLOBULIN 2.5 1.9 - 3.7 g/dL (calc) [facility] ALBUMIN/GLOBULIN RATIO 1.7 1.0 - 2.5 (calc) [facility] BILIRUBIN TOTAL 0.5 0.2 - 1.2 mg/dL [facility] ALKALINE PHOSPHATASE 72 35 - 144 U/L [facility] AST 18 10 - 35 U/L [facility] ALT 20 9 - 46 U/L [facility] Comment: FASTING:YES FASTING: YES Test Performed at: [facility] [address] [phone] Caitlin Puri MD Blood 06/16/2024 9:18 AM CDT 06/16/2024 9:19 AM CDT us Jga Dawson MD CHEMISTRY ORDERABLES Final Re sult [facility] [phone] [facility] [address] [phone] * DIABETES EYE EXAM (09/09/2023 3:39 PM CDT) us Abstract Provider HEALTH MAINTENANCE Edited Resu lt - Final Performing Organization Address City/[facility]/ZIP Co de Phone Number [facility] INTERNAL MED [facility] CLIA# [id number] [address] [facility] [address] [place] [address] * MICROALBUMIN/CREATININE RATIO, RANDOM UR (06/04/2023 8:26 AM CDT) Creatinine, Urine 92 20 - 320 mg/dL [facility] MICROALBUMIN, URINE 1.7 See Note: mg/dL [facility] Comment: Reference Range: Reference Range Not established MICROALBUMIN/CREAT RATIO, UR 18 <30 mg/g creat [facility] Comment: The ADA defines [id number]|2024-07-17 11:30:00|2024-07-17 11:29:00|XMS_ITS|MARISOLG RASTA|External Medical Summaries|[id number]|" Encounter Summary Created on: July 17, 2024 Trevin Cadet : 1950 Sex: Male Author Organization [facility] Address 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 Gender Identity Not on file Sexual Orientation Not on file documented as of this encounter Last Filed Vital Signs Vital Sign Reading Time Taken Comments Blood Pressure 130/70 05/10/2003 4:45 PM 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 Pulse - - Temperature - - Respiratory Rate - - Oxygen Saturation - - Inhaled Oxygen Concentration - - Weight 105.7 kg (233 lb) 05/10/2003 4:45 PM 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 Height - - Body Mass Index - - documented in this encounter Plan of Treatment Upcoming Encounters Date Type Department Care Team (Late st Contact Info) Description 10/22/2024 11:00 AM CDT Office Visit [facility] Primary Care [facility] [address] [facility] [address] [place] [address] Elissa Ortez PA [address] [facility] [address] [place] [address] documented as of this encounter Visit Diagnoses Not on filedocumented in this encounter Care Teams Rn Lactation Relationship Specialty Start Date End Date Jag Dawson MD PCP - General 07/02/07 documented as of this encounter "
--- OUTSIDE RECORDS SUMMARY | 2024-07-17 11:30 | XMS_ITS | Encounter Summary ---
Author Organization [facility] Address 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 462-PHARYNGITIS 2-3 days, glands in neck,no fever 723.1-NECK PAIN upper back1-2 d before sore throat no injury PHYSICAL EXAMINATION: EARS, NOSE, MOUTH AND THROAT: EARS: Tympanic membranes shiny without retraction. Canals unremarkable. Hearing grossly normal. ORAL: OROPHARYNX ERYTHEMATOUS, BOTH TONSILS HAVE EXUDATE. NECK/THYROID: Symmetrical with no elevation of the jugular venous pulsation. Trachea midline. LYMPHATICS: MULTIPLE TENDER, ENLARGED LYMPH NODES NOTED IN THE ANTERIOR CERVICAL CHAINS BILATERALLY. GASTROINTESTINAL: ABDOMEN: Soft, non-tender, without masses. Bowel sounds active. NEUROLOGIC: No tremor or cerebellar signs noted. PSYCHIATRIC: Judgment appropriate. Oriented. Normal memory. Mood and affect appropriate. ASSESSMENT/PLAN: 250.00-DM II CONTROLLED cont med, enc monitoring when ill 715.90-OSTEOARTHROSIS UNSPECIFIED reassess if persists MEDICATIONS: DARVOCET-N 100 ORAL TABLET 100-650 MG, 1 Every Six Hours, As Needed, 40 Dispensed, status: NEW PRESCRIPTION, 10/17/2005. LAB ORDERS: Order number: [id number] Test Ordered: XRAY C SPINES 462-PHARYNGITIS rx MEDICATIONS: CEFUROXIME AXETIL ORAL TABLET 250 MG, 1 Two Times A Day, 20 Dispensed, 10 Duration/Days Supply, status: NEW PRESCRIPTION, 10/17/2005. RETURN VISIT : Instructed to call if not improving.note for off work until Saturday Electronically Signed by: Jag Dawson MD on Monday, October 17, 2005 documented in this encounter Plan of Treatment Upcoming Encounters Date Type Department Care Team (Late st Contact Info) Description 10/22/2024 11:00 AM CDT Office Visit [facility] Primary Care [facility] [address] [place] [address] Elissa Ortez PA [address] [facility] [address] [place] [phone] documented as of this encounter Visit Diagnoses Not on filedocumented in this encounter Care Teams Archaeology Professor Relationship Specialty Start Date End Date Jag Dawson MD PCP - General 07/02/07 documented as of this encounter
--- OUTSIDE RECORDS SUMMARY | 2024-07-17 11:30 | XMS_ITS | Encounter Summary ---
Author Organization [facility] Address 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 Gender Identity Not on file Sexual Orientation Not on file documented as of this encounter Plan of Treatment Upcoming Encounters Date Type Department Care Team (Late st Contact Info) Description 10/22/2024 11:00 AM CDT Office Visit [facility] Primary Care [facility] [address] [facility] [address] [place] [address] Elissa Ortez PA [address] [place] [address] [address] [place] [address] documented as of this encounter Visit Diagnoses Not on filedocumented in this encounter Care Teams Registration Scheduling Specialist Relationship Specialty Start Date End Date Jag Dawson MD PCP - General 07/02/07 documented as of this encounter
--- OUTSIDE RECORDS SUMMARY | 2024-07-17 11:30 | XMS_ITS | Encounter Summary ---
Author Organization [facility] Address 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 Gender Identity Not on file Sexual Orientation Not on file documented as of this encounter Last Filed Vital Signs Vital Sign Reading Time Taken Comments Blood Pressure 150/72 09/05/2005 4:30 PM CDT Pulse - - Temperature - - Respiratory Rate - - Oxygen Saturation - - Inhaled Oxygen Concentration - - Weight 103.4 kg (228 lb) 09/05/2005 4:30 PM CDT Height - - Body Mass Index - - documented in this encounter Plan of Treatment Upcoming Encounters Date Type Department Care Team (Late st Contact Info) Description 10/22/2024 11:00 AM CDT Office Visit [facility] Primary Care [address] [place] [address] Elissa Ortez PA [address] [facility] [address] [place] [address] documented as of this encounter Visit Diagnoses Not on filedocumented in this encounter Care Teams Manager Branch Relationship Specialty Start Date End Date Jag Dawson MD PCP - General 07/02/07 documented as of this encounter
--- OUTSIDE RECORDS SUMMARY | 2024-07-17 11:30 | XMS_ITS | Encounter Summary ---
Author Organization [facility] Address 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 Gender Identity Not on file Sexual Orientation Not on file documented as of this encounter Last Filed Vital Signs Vital Sign Reading Time Taken Comments Blood Pressure 122/68 01/02/2006 4:30 PM TRUCK SERVICE MANAGER Pulse - - Temperature - - Respiratory Rate - - Oxygen Saturation - - Inhaled Oxygen Concentration - - Weight 105.7 kg (233 lb) 01/02/2006 4:30 PM TRUCK SERVICE MANAGER Height - - Body Mass Index - - documented in this encounter Plan of Treatment Upcoming Encounters Date Type Department Care Team (Late st Contact Info) Description 10/22/2024 11:00 AM CDT Office Visit [facility] Primary Care [address] [place] [address] Elissa Ortez PA [address] [facility] [address] [place] [address] documented as of this encounter Visit Diagnoses Not on filedocumented in this encounter Care Teams Paid Intern Relationship Specialty Start Date End Date Jag Dawson MD PCP - General 07/02/07 documented as of this encounter
--- OUTSIDE RECORDS SUMMARY | 2024-07-17 11:30 | XMS_ITS | Encounter Summary ---
Author Organization [facility] Address 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 Gender Identity Not on file Sexual Orientation Not on file documented as of this encounter Plan of Treatment Upcoming Encounters Date Type Department Care Team (Late st Contact Info) Description 10/22/2024 11:00 AM CDT Office Visit [facility] Primary Care [facility] [address] [facility] [address] [place] [address] Elissa Ortez PA [address] [place] [address] [address] [place] [address] documented as of this encounter Visit Diagnoses Not on filedocumented in this encounter Care Teams Photogeologist Relationship Specialty Start Date End Date Jag Dawson MD PCP - General 07/02/07 documented as of this encounter
--- OUTSIDE RECORDS SUMMARY | 2024-07-17 11:30 | XMS_ITS | Encounter Summary ---
Author Organization [facility] Address 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 Pt is a little better. CONGESTION: Patient complains of sinus congestion. clear drainage. COUGH:Patient complains of cough. clear sputum Keeping him awake at night. SECTION 1: REQUESTED ACTION kacey 02/28/07 at 03:02 pm: MEDICATION REQUEST: Patient wants medications and can not come in. DOCTOR`S RESPONSE: feliz 02/28/07 at 03:07 pm MEDICATIONS: Call in to Pharmacy CEFUROXIME AXETIL ORAL TABLET 250 MG, 1 Two Times A Day, 20 Dispensed, 10 Duration/Days Supply, status: CONTINUED, 02/28/2007. see wed if not improved FINAL ACTION: kacey 02/28/07 at 03:10 pm Spoke with patient 02/28/07 at 03:11 pm. spouse Called pharmacy at 02/28/07 at 03:10 pm. Electronically Signed by: Jewell Mccullough on Wednesday, February 28, 2007 documented in this encounter Plan of Treatment Upcoming Encounters Date Type Department Care Team (Late st Contact Info) Description 10/22/2024 11:00 AM CDT Office Visit [facility] Primary Care [facility] [address] [place] [address] Elissa Ortez PA [address] [place] [address] documented as of this encounter Visit Diagnoses Not on filedocumented in this encounter Care Teams Environmental Sampling Technician Relationship Specialty Start Date End Date Jag Dawson MD PCP - General 07/02/07 documented as of this encounter
[2024-07-17 11:40] VITALS: BP 149/68; PULSE 94; RESP 20; TEMP 36.8; O2SAT 99
--- NOTE | 2024-07-17 11:53 | ED.DENTAL ---
HPI - Dental/Oral General Chief complaint: Dental/Oral Stated complaint: dental pain Source: patient and RN notes reviewed Mode of arrival: ambulatory Limitations: no limitations History of Present Illness HPI Narrative: 74-year-old male presents Express Care complaining right upper dental pain and swelling for 3 days. Patient believes he has a dental abscess. Patient has appointment with his dentist on Saturday for further evaluation. Patient states the pain is getting worse and that last night it was a 9/10. Today he rates the pain a 4/10. Patient has been taking Tylenol and ibuprofen for pain. Patient reports having poor dental hygiene. Patient denies any difficulty opening his jaw, difficulty swallowing, difficulty breathing, fevers, or any other concerns. Related Data Home Medications Medication Instructions Recorded Confirmed Last Taken Type atorvastatin 20 mg tablet mg 07/17/24 Unknown History celecoxib 200 mg capsule mg 07/17/24 Unknown History empagliflozin 25 mg tablet mg 07/17/24 Unknown History (Jardiance) ezetimibe 10 mg tablet mg 07/17/24 Unknown History insulin glargine 100 unit/mL (3 unit subcut 07/17/24 Unknown History mL) subcutaneous pen (Lantus Solostar U-100 Insulin) lisinopril 2.5 mg tablet mg 07/17/24 Unknown History metformin 500 mg tablet,extended mg PO 07/17/24 Unknown History release 24 hr mirabegron 25 mg tablet,extended mg PO 07/17/24 Unknown History release 24 hr omeprazole 40 mg capsule,delayed mg 07/17/24 Unknown History release pioglitazone 15 mg tablet mg 07/17/24 Unknown History sertraline 25 mg tablet mg 07/17/24 Unknown History tamsulosin 0.4 mg capsule mg PO 07/17/24 Unknown History Allergies Allergy/AdvReac Type Severity Reaction Status Date / Time No Known Allergies Allergy Verified 07/17/24 11:43 Review of Systems Review of Systems: CONSTITUTIONAL: Denies fever, chills, or sweats. EYES: Denies visual changes, redness, or discharge. ENT: Denies rhinorrhea, congestion, sore throat, difficulty swallowing, excessive drooling, or otalgia. MOUTH: Positive for swelling and dental pain. Negative for trismus. CARDIOVASCULAR: Denies chest pain, palpitations, or edema. RESPIRATORY: Denies cough or dyspnea. GASTROINTESTINAL: Denies abdominal pain, nausea, vomiting, or diarrhea. GENITOURINARY: Denies dysuria or hematuria. SKIN: Denies rash or itching. MUSCULOSKELETAL: Denies back pain, joint pain, or myalgia. NEUROLOGIC: Denies headache, numbness, or weakness. PSYCHIATRIC: Denies anxiety or depression. All other systems reviewed are negative, except as documented in HPI. PMFSH Comments At the time of my signature, I reviewed and agree with the nursing past medical, surgical, social, and family history. There is no relevant family history pertinent to the patient complaint. Exam Narrative: GENERAL: This is a well-nourished, well-developed adult, in no apparent distress. They are non ill-appearing, nontoxic appearing. HEAD: normocephalic, atraumatic. Mild facial swelling present to the right side of the face near the jaw and maxillary. EYES: Sclera clear/white. Conjunctiva normal. Vision is grossly intact. Extraocular movements intact EARS: External ears normalHearing grossly intact. NOSE: External nose normal THROAT: Mucous membranes moist, posterior pharynx clear, without erythema or swelling. Uvula midline. MOUTH: Numerous missing teeth. Diffuse tooth decay and cavities present. Right upper gum erythematous. Gingivitis present. Right upper first molar with surrounding erythema and swelling. Tender to palpation. Soft palate without redness or swelling or tenderness. Tongue without swelling or redness or tenderness. No swelling or tenderness under the tongue. No area of fluctuance or induration. No trismus. NECK: Neck supple, non-tender without lymphadenopathy, masses or thyromegaly. CARDIOVASCULAR: Regular rate and rhythm without murmurs, gallops, or rubs. RESPIRATORY: Clear to auscultation. Breath sounds equal bilaterally. No wheezes, rales, or rhonchi. SKIN: warm, Dry, intact with no suspicious lesions or rash, good texture and turgor. NEURO: awake, alert, and oriented to person, place and time. There were no obvious focal neurologic abnormalities. EXTREMITIES: No joint tenderness, effusion, or edema noted. Course Course Emergency Course: Portions of this record may have been created with voice recognition software Level of Care: Express Care Visit Vital Signs Vital signs: Vital Signs Temperature 98.2 F 07/17/24 11:40 Pulse Rate 94 07/17/24 11:40 Respiratory Rate 20 07/17/24 11:40 Blood Pressure 149/68 H 05/16/25 11:40 Pulse Oximetry 99 07/17/24 11:40 Oxygen Delivery Room Air 07/17/24 11:40 Temperature 98.2 F 07/17/24 11:40 Pulse Rate 94 07/17/24 11:40 Respiratory Rate 20 07/17/24 11:40 Blood Pressure 149/68 H 07/17/24 11:40 Pulse Oximetry 99 07/17/24 11:40 Oxygen Delivery Room Air 07/17/24 11:40 Reviewed MDM - Dental/Oral MDM Narrative Medical decision making narrative: There is evidence of likely a abscess starting to form to the 1st molar on the right upper mouth. Patient has a follow-up dentist appointment on Saturday. Will treat empirically with Augmentin. Will given magic mouthwash to use as needed for pain. Patient has no trismus, difficulty swallowing, or any difficulty breathing. Dental hygiene discussed. Discussed physical exam findings. Advised supportive measures and signs/symptoms to go to the ER. Pt is appropriate for outpt treatment and f/u. Differential Diagnosis Differential diagnosis: Likely gingival abscess, dental caries and dental abscess Critical Care Time Critical Care Time Critical Care Time: No Discharge Plan Discharge Clinical Impression: Dental abscess Patient Disposition: Home Condition: Stable Instructions: Antibiotic Form, Dental Abscess (ED) Additional Instructions: Take antibiotic until it's gone. Brushing teeth at least twice daily with gentle flossing. Use mouthwash after he pressure teeth twice a day. Avoid temperature extremes---when you eat. You may apply ice to the face to reduce pain/swelling. For pain, you may take: Tylenol 650-1000mg by mouth every 4-6 hours. Do not exceed 4000mg in 24 hours. Advil (Ibuprofen) 600 mg by mouth every 6 hours. Do not exceed 2400mg in 24 hours. Please follow-up with dentist on Saturday as scheduled. If your symptoms worsen, he developed fevers, difficulty open jaw, breathing problems, difficulty swallowing, worsening swelling, or any other concerns go to the ER immediately Patient Language: Georgian Prescriptions: New amoxicillin-pot clavulanate 875-125 mg tablet 1 tablet PO Q12H 7 Days Qty: 14 0RF Magic Mouthwash (Dr. Rizo) 120 mL suspension 5 ml PO Q6H PRN (Reason: oral pain) Qty: 120 0RF Rx Instructions: diphenhydramine 12.5 mg/5 mL oral elixir 40 mL; Lidocaine Viscous 2 % mucosal solution 40 mL; Maalox 200 mg-200 mg-20 mg/5 mL oral suspension 40 mL; Per 120 mL Switch, swallow, spit 5 mL every 6 hours as needed for pain. Magic Mouthwash (Dr. Rizo) 120 mL suspension 5 ml PO Q6H PRN (Reason: dental pain) Qty: 120 0RF Rx Instructions: diphenhydramine 12.5 mg/5 mL oral elixir 40 mL; Lidocaine Viscous 2 % mucosal solution 40 mL; Maalox 200 mg-200 mg-20 mg/5 mL oral suspension 40 mL; Per 120 mL Switch swallow and spit 5 mL every 6 hours for dental pain. No Action celecoxib 200 mg capsule pioglitazone 15 mg tablet atorvastatin 20 mg tablet omeprazole 40 mg capsule,delayed release(DR/EC) tamsulosin 0.4 mg capsule PO sertraline 25 mg tablet metformin 500 mg tablet extended release 24 hr PO lisinopril 2.5 mg tablet ezetimibe 10 mg tablet insulin glargine [Lantus Solostar U-100 Insulin] 100 unit/mL (3 mL) insulin pen SUBCUT mirabegron 25 mg tablet extended release 24 hr PO Jardiance 25 mg tablet Follow-up/Referrals: Samir,Jag Gonzales MD [Primary Care Provider] - Time of Disposition: 11:47
== END 2024-07-17 11:57 | disposition home or self-care (01) ==
PROVIDERS: PCP Internal Medicine
DX: K04.7 Periapical abscess without sinus (principal); Z79.899 Other long term (current) drug therapy; Z79.4 Long term (current) use of insulin
CPT/HCPCS: 99213; G0463

== ENCOUNTER 2024-12-03 15:00 | Emergency (ER) | payer OTHER, SELFPAY ==
--- OUTSIDE RECORDS SUMMARY | 2024-12-03 15:02 | XMS_ITS | Encounter Summary ---
Author Organization [facility] Address [address] [place] [address] Care Team Providers Care Child Attendant Name Role Phone Jag Dawson MD Primary Care Provider [phone] Reason for Visit * Reason Comments Provider Call Encounter Details Date Type Department Care Team (Late st Contact Info) Description 06/26/2024 Telephone [facility] Primary Care [address] [place] [address] Jag Dawson MD [address] [place] [address] [address] [place] [address] Provider Call Social History Tobacco [...] often do you attend chur ch or mormonism services? 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 Topic: [id number] Call >> Jun 26, 2024 2:20 PM Zaida Brownlee wrote: Caller is requesting to speak with Clinical Care Team. Caller Name: nayla Stewart advantage Callback Number: [phone] Clinician Type: Other healthcare professional not listed above Call Notes: please give last name of pt if having to leave a vm as well as would like pts last visit and contact information Is this addressing an immediate patient care need? No documented in this encounter Plan of Treatment Upcoming Encounters Date Type Department Care Team (Late st Contact Info) Description 05/11/2025 3:00 PM CDT Office Visit [facility] Primary Care [address] [place] [address] Jag Dawson MD [address] [place] [address] [address] [place] [address] documented as of this encounter Visit Diagnoses Not on filedocumented in this encounter Care Teams Child Attendant Relationship Specialty Start Date End Date Jag Dawson MD PCP - General 07/02/07 documented as of this encounter
--- OUTSIDE RECORDS SUMMARY | 2024-12-03 15:02 | XMS_ITS | Clinical Summary ---
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 Gender Identity Not on file Sexual [...] 6:22 PM CDT Height 175.3 cm (5' 9) 06/05/2023 6:22 PM CDT Body Mass Index [...] Td or Tdap) 03/25/2023 03/25/2013, 08/14/2004, 09/01/1994 Fall Risk Assessment 06/05/2024 06/06/2023 eGFR 06/05/2024 06/06/2023, 04/0 05/2023, 07/04/2016 Hemoglobin A1C 07/21/2024 01/22/2024, 08/0 03/2023, 06/04/2023, Additional history exists Covid-19 Vaccine (2024- 6 season) 2024 01/11/2021, 05/25/2020, 05/03/2020 Influenza Vaccine (#1) 2024 , 12/07/2022, 01/11/2021, Additional history exists Colon Cancer Screening-Colonoscopy 04/20/2026 04/20/2016, 04/20/2016 Colon Cancer Screening-CT Colonography Discontinued 04/20/2016, 04/20/2016 Colon Cancer Screening-DNA Stool Discontinued 04/20/19, 04/20/2016 Colon Cancer Screening-FIT Discontinued 04/20/2016, Colon Cancer Screening-Sigmoidoscopy Discontinued 04/20/2016, 04/20/2016 Abdominal Aortic Aneurysm (A AA) Screen Completed 08/02/2016, 07/04/2016 Pneumococcal vaccine 65+ Completed 020, 03/25/2015, 08/14/2004, Additional history exists Procedures Procedure Name Priority [...] 2:53 AM CDT 06/06/2023 2:57 AM CDT Roxana Hernandes MD LAB BLOOD ORDERABLES Fin al Result [facility] Department [place] [address] * CT Abdomen Pelvis WO Contrast (08/02/2016 2:15 PM CDT) Anatomical Region Laterality Modality Body N/A Computed Tomogra phy 08/02/2016 2:15 PM CDT Narrative 08/02/2016 2:[address] [place] [id number] Acc#: [id number] DATE OF EXAM: Aug 02 2016 ADDENDUM #[place] [id number] HISTORY: Follow-up right ureteral calculus. TECHNIQUE: Noncontrast [...] - [place] [id number] HISTORY: Follow-up right ureteral calculus. TECHNIQUE: Noncontrast [...] on: Aug 02 2016 12:07P Transcribed by: [facility] On: Aug 02 2016 2:59P Approved Electronically by: KAVITHA Chacon, DR BALDERAS on: Aug 02 2016 2:59P Ordering DR: DR BOB SAUER Attending DR: DR BOB SAUER Attending: DR BOB SAUER Requesting: DR BOB SAUER Requesting Attending Attending ID: [id number] Requesting ID: [id number] Report To 1 ID: [id number] Report To 1 Name: DR BOB SAUER Report To 1 FAX: [phone] NextGen Order #: Procedure Note Miscellaneous, Not In File / Provider, MD Ben - 08/07/[place] [id number] Acc#: [id number] DATE OF EXAM: Aug 02 2016 ADDENDUM #[place] [id number] HISTORY: Follow-up right ureteral calculus. TECHNIQUE: Noncontrast [...] - [place] [id number] HISTORY: Follow-up right ureteral calculus. TECHNIQUE: Noncontrast [...] on: Aug 02 2016 12:07P Transcribed by: [facility] On: Aug 02 2016 2:59P Approved Electronically by: KAVITHA Chacon, DR BALDERAS on: Aug 02 2016 2:59P Ordering DR: DR BOB SAUER Attending DR: DR BOB SAUER Attending: DR BOB SAUER Requesting: DR BOB SAUER Requesting Attending Attending ID: [id number] Requesting ID: [id number] Report To 1 ID: [id number] Report To 1 Name: DR BOB SAUER Report To 1 FAX: [phone] NextGen Order #: [id number] Not In File Miscellaneous IMG CT PROCEDURES Jessica l Result * COLONOSCOPY IMAGES (04/20/2016) Anatomical Region Laterality Modality Other Narrative 04/20/2016 Ordered by an unspecified provider. us Historical Provider GI PROCEDURE ORDERABLES F inal Result from Last 3 Months or Most Recently Relevant to Health Maintenance Insurance [facility] MEDICARE ADVANTAGE [facility] Advance Directives For more information, please contact: [phone] * Full Code (Latest Code Status on File) Date Activated Date Inactivated Comments 06/05/2023 8:24 PM 06/06/2023 10:32 PM Care Teams Head Of Measurement & Insights Relationship Specialty Start Date End Date Jag Dawson MD PCP - General 04/20/16
--- OUTSIDE RECORDS SUMMARY | 2024-12-03 15:02 | XMS_ITS | Encounter Summary ---
Author Organization [facility] Address [address] [place] [address] Care Team Providers Care Application Coordinator Name Role Phone Jag Dawson MD Primary Care Provider [phone] Reason for Visit * Reason Onset Date Comments Change Dates on Orders 03/08/2022 Encounter Details Date Type Department Care Team (Late st Contact Info) Description 03/08/2022 Telephone [facility] Primary Care [address] [place] [address] Jag Dawson MD [address] [facility] [address] [place] [address] Change Dates on Orders Social [...] often do you attend chur ch or christian services? 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 ACY COMPLIANCE MANAGER * Telephone Encounter - Lety Cueto - 03/08/2022 12:31 PM CST Provider: Jag Dawson MD Next office visit: 03/12/2022 Caller: Trevin Cadet Message: Patient is stating that he will go in tomorrow to have his blood labs done, the date on the orders is 09/08/21. They will have to be changed so the patient can get it done. Call-back Number: [phone] ACY COMPLIANCE MANAGER documented in this encounter Plan of Treatment Upcoming Encounters Date Type Department Care Team (Late st Contact Info) Description 05/11/2025 3:00 PM CDT Office Visit [facility] Primary Care [address] [place] [address] Jag Dawson MD [address] [place] [address] [address] [place] [address] documented as of this encounter Visit Diagnoses Not on filedocumented in this encounter Care Teams Application Coordinator Relationship Specialty Start Date End Date Jag Dawson MD PCP - General 07/02/07 documented as of this encounter
--- OUTSIDE RECORDS SUMMARY | 2024-12-03 15:03 | XMS_ITS | Encounter Summary ---
Author Organization [facility] Address 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 [address] [place] [address] Jag Dawson MD [address] [place] [address] [address] [place] [address] documented as of this encounter Visit Diagnoses Not on filedocumented in this encounter Care Teams Manager Of Corporate Relationship Specialty Start Date End Date Jag Dawson MD PCP - General 07/02/07 documented as of this encounter
--- OUTSIDE RECORDS SUMMARY | 2024-12-03 15:03 | XMS_ITS | Encounter Summary ---
Author Organization [facility] Address [address] [place] [address] Care Team Providers Care Acetylene Cylinder Packing Mixer Name Role Phone Jag Dawson MD Primary Care Provider Encounter Details Date Type Department Care Team (Late Contact Info) Description 06/06/2005 Outpatient Historical [facility] Internal Medicine [address] [phone] Jag Dawson MD [address] [place] [address] [address] [place] [address] Social History Tobacco Use Types Packs/Day Years Used Date Smoking Tobacco: Never Assessed Sex and Gender Information Value Date Recorded Sex Assigned at Not on file 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
--- OUTSIDE RECORDS SUMMARY | 2024-12-03 15:03 | XMS_ITS | Encounter Summary ---
Author Organization [facility] Address 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 Gender Identity Not on file Sexual Orientation Not on file documented as of this encounter Plan of Treatment Upcoming Encounters Date Type Department Care Team (Late st Contact Info) Description 05/11/2025 3:00 PM CDT Office Visit [facility] Primary Care [facility] [address] [facility] [address] [place] [address] Jag Dawson MD [address] [place] [address] [address] [place] [address] documented as of this encounter Visit Diagnoses Not on filedocumented in this encounter Care Teams Home Specialist Relationship Specialty Start Date End Date Jag Dawson MD PCP - General 07/02/07 documented as of this encounter
--- OUTSIDE RECORDS SUMMARY | 2024-12-03 15:03 | XMS_ITS | Encounter Summary ---
Author Organization [facility] Address 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
--- OUTSIDE RECORDS SUMMARY | 2024-12-03 15:03 | XMS_ITS | Encounter Summary ---
Author Organization [facility] Address [address] [place] [address] Care Team Providers Care Ase Certified Technician Name Role Phone Jag Dawson MD Primary Care Provider [phone] Encounter Details Date Type Department Care Team (Late Contact Info) Description 02/14/2004 Outpatient Historical [facility] Internal Medicine [address] [address] Jag Dawson MD [address] [place] [address] [address] [place] [address] Social History Tobacco Use Types Packs/Day Years Used Date Smoking Tobacco: Never Assessed Sex and Gender Information Value Date Recorded Sex Assigned at Not on file Legal Sex Male 3:09 AM SUPERVISOR GLYCERIN Gender Identity Not on file Sexual Orientation Not on file documented as of this encounter Last Filed Vital Signs Vital Sign Reading Time Taken Comments Blood Pressure 130/70 02/14/2004 4:45 PM SUPERVISOR GLYCERIN Pulse - - Temperature - - Respiratory Rate - - Oxygen Saturation - - Inhaled Oxygen Concentration - - Weight 106.6 kg (235 lb) 02/14/2004 4:45 PM SUPERVISOR GLYCERIN Height - - Body Mass Index - - documented in this encounter Plan of Treatment Upcoming Encounters Date Type Department Care Team (Late st Contact Info) Description 05/11/2025 3:00 PM CDT Office Visit [facility] Primary Care [address] [place] [address] Jag Dawson MD [address] [place] [address] [place] [address] documented as of this encounter Visit Diagnoses Not on filedocumented in this encounter Care Teams Ase Certified Technician Relationship Specialty Start Date End Date Jag Dawson MD PCP - General 07/02/07 documented as of this encounter
--- OUTSIDE RECORDS SUMMARY | 2024-12-03 15:03 | XMS_ITS | Encounter Summary ---
Author Organization [facility] Address 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 Gender Identity Not on file Sexual Orientation Not on file documented as of this encounter Progress Notes * Jag Dawson MD - 07/17/2007 1:25 PM CDT TIME:03:00 pm PATIENT`S HOME PHONE: PATIENT`S WORK PHONE: PATIENT`S INSURANCE: [facility] AND [employer] [facility] WHO TOOK THE CALL: Jewell Mccullough L GENERAL INFORMATION ALTERNATIVE PHONE NUMBER: [phone] WHO CALLED: CURRENT ALLERGY LIST: [facility] [place] [facility] NUMBER: [phone] PROBLEMS: Pt had a cold & took [...] see wed if not improved FINAL ACTION: kcaey 02/28/07 at 03:10 pm Spoke with patient 02/28/07 at 03:11 pm. spouse Called pharmacy at 02/28/07 at 03:10 pm. Electronically Signed by: Jewell Mccullough on Wednesday, February 28, 2007 documented in this encounter Plan of Treatment Upcoming Encounters Date Type Department Care Team (Late st Contact Info) Description 05/11/2025 3:00 PM CDT Office Visit [facility] Primary Care [address] [address] Jag Dawson MD [address] [place] [address] documented as of this encounter Visit Diagnoses Not on filedocumented in this encounter Care Teams Property Management Specialist Relationship Specialty Start Date End Date Jag Dawson MD PCP - General 07/02/07 documented as of this encounter
--- OUTSIDE RECORDS SUMMARY | 2024-12-03 15:03 | XMS_ITS | Encounter Summary ---
Author Organization [facility] Address 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 [address] [place] [address] Jag Dawson MD [address] [place] [address] [address] [place] [address] documented as of this encounter Visit Diagnoses Not on filedocumented in this encounter Care Teams Hardboard Grinder Relationship Specialty Start Date End Date Jag Dawson MD PCP - General 07/02/07 documented as of this encounter
--- OUTSIDE RECORDS SUMMARY | 2024-12-03 15:03 | XMS_ITS | Encounter Summary ---
Author Organization [facility] Address [address] [place] [address] Care Team Providers Care Junior Electrical Engineer Name Role Phone Amira Pratt MD Primary Care Provider [phone] Encounter Details Date Type Department Care Team (Late st Contact Info) Description 03/25/[address] 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 MAY WE LEAVE MESSAGE AT THAT NUMBER: YES, LEAVE MESSAGE. PLEASE SCHEDULE THE APPOINTMENT AT THE FOLLOWING LOCATION: [facility] [phone]. TEST PRIORITY: 2 - 7 DAYS. SPECIAL SCHEDULING INSTRUCTIONS: need prep ORDERING PHYSICIAN: AMIRA PRATT MD OFFICE TABLE OPERATOR & PHONE: Nayla Layton E FOR SCHEDULING USE ONLY: FIRST ATTEMPT Date:APR 10, 2007 Sheree Vogel A 05:37 p Left Message with Family.-C/B TOMORROW APR 11, 2007 Sheree Vogel A 02:[address] [facility] [phone]. APPOINTMENT DATE : 04/16/2007 ( 11AM) The appointment was scheduled by Sheree Vogel A at [phone] APR 11, 2007 Sheree Vogel A 02:43 [...] pos on left, no m wasting , grease buffer ok SKIN: SKIN: Warm, dry, no diaphoresis, no significant lesions, irritation, rashes or ulcers. No induration, obvious subcutaneous nodules or tightening. ASSESSMENT/PLAN: 250.00-DM II CONTROLLED cont med, enc more frequent monitoring may be able cut actos in 1/2 LAB ORDERS: 3 mo Order number: [id number] Test Ordered: COMPREHENSIVE METABOLIC PANEL & GFR 1112 Order number: [id number] Test Ordered: LIPID PANEL 1078 Order number: [id number] Test Ordered: HEMOGLOBIN A1C 1814 Order number: [id number] Test Ordered: MICROALBUMIN/CREAT, UR RATIO 2252 Order number: [id number] Test Ordered: TSH 1720 272.4-HYPERLIPIDEMIA cont med 401.9-HYPERTENSION, UNSPECIFIED enc diet and ex cont med 354.0-CARPAL TUNNEL SYNDROME try splint at night, reassess LAB ORDERS: jerry Order number: [id number] Test Ordered: NCV/EMG UPPER EXTREMITY LEFT Order number: [id number] Test Ordered: NCV/EMG UPPER EXTREMITY RIGHT 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 LAB ORDERS: Order number: [id number] Test Ordered: HEMOCCULT SINGLE 05395 Patient Education: Risks, benefits, and possible side [...] Description 05/11/2025 3:00 PM CDT Office Visit [facility] Primary Care [address] [place] [address] Amira Pratt MD [address] [address] [address] [place] [address] documented as of this encounter Visit Diagnoses Not on filedocumented in this encounter Care Teams Junior Electrical Engineer Relationship Specialty Start Date End Date Amiar Pratt MD PCP - General 07/02/07 documented as of this encounter
--- OUTSIDE RECORDS SUMMARY | 2024-12-03 15:03 | XMS_ITS | Encounter Summary ---
Author Organization [facility] Address 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 MATERIAL 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 Gender Identity Not on file Sexual Orientation Not on file documented as of this encounter Last Filed Vital Signs Vital Sign Reading Time Taken Comments Blood Pressure 130/70 02/21/2005 4:30 PM MATERIAL MANAGER Pulse - - Temperature - - Respiratory Rate - - Oxygen Saturation - - Inhaled Oxygen Concentration - - Weight 104.3 kg (230 lb) 02/21/2005 4:30 PM MATERIAL MANAGER Height - - Body Mass Index - - documented in this encounter Plan of Treatment Upcoming Encounters Date Type Department Care Team (Late st Contact Info) Description 05/11/2025 3:00 PM CDT Office Visit [facility] Primary Care [address] [place] [address] Jag Dawson MD [address] [place] [address] [place] [address] documented as of this encounter Visit Diagnoses Not on filedocumented in this encounter Care Teams Box Toe Stitcher Relationship Specialty Start Date End Date Jag Dawson MD PCP - General 07/02/07 documented as of this encounter
--- OUTSIDE RECORDS SUMMARY | 2024-12-03 15:03 | XMS_ITS | Encounter Summary ---
Author Organization [facility] Address [address] [place] [address] Care Team Providers Care Acquisition Consultant Name Role Phone Jag Dawson MD Primary Care Provider [phone] Encounter Details Date Type Department Care Team (Late Contact Info) Description 05/10/2003 Outpatient Historical [facility] Internal Medicine [address] [address] Jag Dawson MD [address] [place] [address] [address] [place] [address] Social History Tobacco Use Types Packs/Day Years Used Date Smoking Tobacco: Never Assessed Sex and Gender Information Value Date Recorded Sex Assigned at Not on file Legal Sex Male 3:09 AM CHIEF 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 Gender Identity Not on file Sexual Orientation Not on file documented as of this encounter Last Filed Vital Signs Vital Sign Reading Time Taken Comments Blood Pressure 130/70 05/10/2003 4:45 PM CHIEF 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 DEPARTMENT Pulse - - Temperature - - Respiratory Rate - - Oxygen Saturation - - Inhaled Oxygen Concentration - - Weight 105.7 kg (233 lb) 05/10/2003 4:45 PM CHIEF 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 DEPARTMENT Height - - Body Mass Index - - documented in this encounter Plan of Treatment Upcoming Encounters Date Type Department Care Team (Late st Contact Info) Description 05/11/2025 3:00 PM CDT Office Visit [facility] Primary Care [address] [place] [address] Jag Dawson MD [address] [place] [address] [place] [address] documented as of this encounter Visit Diagnoses Not on filedocumented in this encounter Care Teams Acquisition Consultant Relationship Specialty Start Date End Date Jag Dawson MD PCP - General 07/02/07 documented as of this encounter
--- OUTSIDE RECORDS SUMMARY | 2024-12-03 15:03 | XMS_ITS | Encounter Summary ---
Author Organization [facility] Address [address] [place] [address] Care Team Providers Care Otolaryngology Surgeon Name Role Phone Jag Dawson MD Primary Care Provider [phone] Encounter Details Date Type Department Care Team (Late Contact Info) Description 05/15/2004 Outpatient Historical [facility] Internal Medicine [address] [address] Jag Dawson MD [address] [place] [address] [address] [place] [address] Social History Tobacco Use Types Packs/Day Years Used Date Smoking Tobacco: Never Assessed Sex and Gender Information Value Date Recorded Sex Assigned at Not on file Legal Sex Male 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 Gender Identity Not on file Sexual Orientation Not on file documented as of this encounter Last Filed Vital Signs Vital Sign Reading Time Taken Comments Blood Pressure 130/70 05/15/2004 4:15 PM INDUSTRIAL CHEMICALS SUPERVISOR Pulse - - Temperature - - Respiratory Rate - - Oxygen Saturation - - Inhaled Oxygen Concentration - - Weight 109.8 kg (242 lb) 05/15/2004 4:15 PM INDUSTRIAL CHEMICALS SUPERVISOR Height - - Body Mass Index - - documented in this encounter Plan of Treatment Upcoming Encounters Date Type Department Care Team (Late st Contact Info) Description 05/11/2025 3:00 PM CDT Office Visit [facility] Primary Care [address] [place] [address] Jag Dawson MD [address] [place] [address] [place] [address] documented as of this encounter Visit Diagnoses Not on filedocumented in this encounter Care Teams Otolaryngology Surgeon Relationship Specialty Start Date End Date Jag Dawson MD PCP - General 07/02/07 documented as of this encounter
--- OUTSIDE RECORDS SUMMARY | 2024-12-03 15:03 | XMS_ITS | Encounter Summary ---
Author Organization [facility] Address [address] 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 Gender Identity Not on file Sexual Orientation Not on file documented as of this encounter Plan of Treatment Upcoming Encounters Date Type Department Care Team (Late st Contact Info) Description 05/11/2025 3:00 PM CDT Office Visit [facility] Primary Care [address] [place] [address] Jag Dawson MD [address] [facility] [address] [place] [address] documented as of this encounter Visit Diagnoses Not on filedocumented in this encounter Care Teams Mat Machine Operator Relationship Specialty Start Date End Date Jag Dawson MD PCP - General 07/02/07 documented as of this encounter
--- OUTSIDE RECORDS SUMMARY | 2024-12-03 15:03 | XMS_ITS | Encounter Summary ---
Author Organization [facility] Address 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 Gender Identity Not on file Sexual Orientation Not on file documented as of this encounter Plan of Treatment Upcoming Encounters Date Type Department Care Team (Late st Contact Info) Description 05/11/2025 3:00 PM CDT Office Visit [facility] Primary Care [facility] [address] [facility] [address] [place] [address] Jag Dawson MD [address] [place] [address] [address] [place] [address] documented as of this encounter Visit Diagnoses Not on filedocumented in this encounter Care Teams Special Warfare Boat Operator Relationship Specialty Start Date End Date Jag Dawson MD PCP - General 07/02/07 documented as of this encounter
--- OUTSIDE RECORDS SUMMARY | 2024-12-03 15:03 | XMS_ITS | Encounter Summary ---
Author Organization [facility] Address [address] [place] [address] Care Team Providers Care Document Clerk Name Role Phone Jag Dawson MD Primary Care Provider [phone] Encounter Details Date Type Department Care Team (Late Contact Info) Description 09/05/2005 Outpatient Historical [facility] Internal Medicine [address] [phone] Jag Dawson MD [address] [place] [address] [address] [place] [address] Social History Tobacco Use Types Packs/Day Years Used Date Smoking Tobacco: Never Assessed Sex and Gender Information Value Date Recorded Sex Assigned at Not on file Legal Sex Male 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
--- OUTSIDE RECORDS SUMMARY | 2024-12-03 15:03 | XMS_ITS | Encounter Summary ---
Author Organization [facility] Address 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
--- OUTSIDE RECORDS SUMMARY | 2024-12-03 15:03 | XMS_ITS | Encounter Summary ---
Author Organization [facility] Address 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 Gender Identity Not on file [...] explained LAB ORDERS: 4 mo Order number: [id number] Test Ordered: COMPREHENSIVE METABOLIC PANEL & GFR 1112 Order number: [id number] Test Ordered: LIPID PANEL 1078 Order number: [id number] Test Ordered: HEMOGLOBIN A1C 1814 272.4-HYPERLIPIDEMIA cont [...] Description 05/11/2025 3:00 PM CDT Office Visit [facility] Primary Care [address] [place] [address] Jga Dawson MD [address] [place] [address] documented as of this encounter Visit Diagnoses Not on filedocumented in this encounter Care Teams Paper Cutter Operator Relationship Specialty Start Date End Date Jag Dawson MD PCP - General 07/02/07 documented as of this encounter
--- OUTSIDE RECORDS SUMMARY | 2024-12-03 15:03 | XMS_ITS | Encounter Summary ---
Author Organization [facility] Address [address] [place] [address] Care Team Providers Care Body Technician/Painter Name Role Phone Jag Dawson MD Primary Care Provider [phone] Encounter Details Date Type Department Care Team (Late st Contact Info) Description 08/14/2004 Outpatient Historical [facility] Internal Medicine [address] [address] Jag Dawson MD [address] [place] [address] [address] [place] [address] Social History Tobacco Use Types Packs/Day Years Used Date Smoking Tobacco: Never Assessed Sex and Gender Information Value Date Recorded Sex Assigned at Not on file Legal Sex Male 3:09 AM RN CLINICAL APPEALS Gender Identity Not on file Sexual Orientation Not on file documented as of this encounter Plan of Treatment Upcoming Encounters Date Type Department Care Team (Late st Contact Info) Description 05/11/2025 3:00 PM CDT Office Visit [facility] Primary Care [facility] [address] [facility] [address] [place] [address] Jag Dawson MD [address] [place] [address] [address] [place] [address] documented as of this encounter Visit Diagnoses Not on filedocumented in this encounter Care Teams Body Technician/Painter Relationship Specialty Start Date End Date Jag Dawson MD PCP - General 07/02/07 documented as of this encounter
--- OUTSIDE RECORDS SUMMARY | 2024-12-03 15:03 | XMS_ITS | Encounter Summary ---
Author Organization [facility] Address [address] [place] [address] Care Team Providers Care Sole Molding Machine Operator Name Role Phone Jag Dawson MD Primary Care Provider [phone] Encounter Details Date Type Department Care Team (Late st Contact Info) Description 03/25/2007 Outpatient Historical [facility] Internal Medicine [address] [address] Jag Dawson MD [address] [place] [address] [address] [place] [address] Social History Tobacco Use Types Packs/Day Years Used Date Smoking Tobacco: Never Assessed Sex and Gender Information Value Date Recorded Sex Assigned at Not on file Legal Sex Male 3:09 AM BOBBIN FIXER Gender Identity Not on file Sexual Orientation Not on file documented as of this encounter Plan of Treatment Upcoming Encounters Date Type Department Care Team (Late st Contact Info) Description 05/11/2025 3:00 PM CDT Office Visit [facility] Primary Care [facility] [address] [facility] [address] [place] [address] Jag Dawson MD [address] [place] [address] [address] [place] [address] documented as of this encounter Visit Diagnoses Not on filedocumented in this encounter Care Teams Sole Molding Machine Operator Relationship Specialty Start Date End Date Jag Dawson MD PCP - General 07/02/07 documented as of this encounter
--- OUTSIDE RECORDS SUMMARY | 2024-12-03 15:03 | XMS_ITS | Encounter Summary ---
Author Organization [facility] Address 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 Gender Identity Not on file Sexual Orientation Not on file documented as of this encounter Plan of Treatment Upcoming Encounters Date Type Department Care Team (Late st Contact Info) Description 05/11/2025 3:00 PM CDT Office Visit [facility] Primary Care [facility] [address] [facility] [address] [place] [address] Jag Dawson MD [address] [place] [address] [address] [place] [address] documented as of this encounter Visit Diagnoses Not on filedocumented in this encounter Care Teams Semiconductor Lab Technician Relationship Specialty Start Date End Date Jag Dawson MD PCP - General 07/02/07 documented as of this encounter
--- OUTSIDE RECORDS SUMMARY | 2024-12-03 15:03 | XMS_ITS | Encounter Summary ---
Author Organization [facility] Address [address] [place] [address] Care Team Providers Care Campus Chaplain Name Role Phone Jag Dawson MD Primary Care Provider Encounter Details Date Type Department Care Team (Late st Contact Info) Description 12/21/2005 Orders Only [facility] Internal Medicine [address] [address] Jag Dawson MD [address] [place] [address] [address] [place] [address] Social History Tobacco Use Types Packs/Day Years Used Date Smoking Tobacco: Never Assessed Sex and Gender Information Value Date Recorded Sex Assigned at Not on file Legal Sex Male 3:09 AM TEST AND RESEARCH REACTOR 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 [address] [place] [address] Jag Dawson MD [address] [place] [address] [address] [place] [address] documented as of this encounter Visit Diagnoses Not on filedocumented in this encounter Care Teams Campus Chaplain Relationship Specialty Start Date End Date Jag Dawson MD PCP - General 07/02/07 documented as of this encounter
--- OUTSIDE RECORDS SUMMARY | 2024-12-03 15:03 | XMS_ITS | Encounter Summary ---
Author Organization [facility] Address [address] [place] [address] Care Team Providers Care Dumper Bailer Operator Name Role Phone Jag Dawson MD Primary Care Provider [phone] Encounter Details Date Type Department Care Team (Late st Contact Info) Description 08/15/2005 Orders Only 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 Primary Care [address] [place] [address] Jag Dawson MD [address] [place] [address] [place] [address] documented as of this encounter Visit Diagnoses Not on filedocumented in this encounter Care Teams Dumper Bailer Operator Relationship Specialty Start Date End Date Jag Dawson MD PCP - General 07/02/07 documented as of this encounter
--- OUTSIDE RECORDS SUMMARY | 2024-12-03 15:03 | XMS_ITS | Encounter Summary ---
Author Organization [facility] Address 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 [address] [place] [address] Jag Dawson MD [address] [place] [address] [address] [place] [address] documented as of this encounter Visit Diagnoses Not on filedocumented in this encounter Care Teams Workers Compensation Administrator Relationship Specialty Start Date End Date Jag Dawson MD PCP - General 07/02/07 documented as of this encounter
--- OUTSIDE RECORDS SUMMARY | 2024-12-03 15:03 | XMS_ITS | Encounter Summary ---
Author Organization [facility] Address [address] [place] [address] Care Team Providers Care Morgue Attendant Name Role Phone Jag Dawson MD Primary Care Provider [phone] Encounter Details Date Type Department Care Team (Late Contact Info) Description 01/02/2006 Outpatient Historical [facility] Internal Medicine [address] [address] Jag Dawson MD [address] [place] [address] [address] [place] [address] Social History Tobacco Use Types Packs/Day Years Used Date Smoking Tobacco: Never Assessed Sex and Gender Information Value Date Recorded Sex Assigned at Not on file Legal Sex Male 3:09 AM SAUSAGE GRINDER Gender Identity Not on file Sexual Orientation Not on file documented as of this encounter Last Filed Vital Signs Vital Sign Reading Time Taken Comments Blood Pressure 122/68 01/02/2006 4:30 PM SAUSAGE GRINDER Pulse - - Temperature - - Respiratory Rate - - Oxygen Saturation - - Inhaled Oxygen Concentration - - Weight 105.7 kg (233 lb) 01/02/2006 4:30 PM SAUSAGE GRINDER Height - - Body Mass Index - - documented in this encounter Plan of Treatment Upcoming Encounters Date Type Department Care Team (Late st Contact Info) Description 05/11/2025 3:00 PM CDT Office Visit [facility] Primary Care [address] [place] [address] Jag Dawson MD [address] [place] [address] [place] [address] documented as of this encounter Visit Diagnoses Not on filedocumented in this encounter Care Teams Morgue Attendant Relationship Specialty Start Date End Date Jag Dawson MD PCP - General 07/02/07 documented as of this encounter
--- OUTSIDE RECORDS SUMMARY | 2024-12-03 15:03 | XMS_ITS | Encounter Summary ---
Author Organization [facility] Address [address] [place] [address] Care Team Providers Care Hospice Consultant Name Role Phone Jag Dawson MD Primary Care Provider Encounter Details Date Type Department Care Team (Late Contact Info) Description 07/23/2006 Outpatient Historical [facility] Internal Medicine [address] [phone] Jag Dawson MD [address] [place] [address] [address] [place] [address] Social History Tobacco Use Types Packs/Day Years Used Date Smoking Tobacco: Never Assessed Sex and Gender Information Value Date Recorded Sex Assigned at Not on file Legal Sex Male 3:09 AM LEAD ETL DEVELOPER Gender Identity Not on file Sexual Orientation [...] CDT Office Visit [facility] Primary Care [address] [place] [address] Jag Dawson MD [address] [place] [address] [place] [address] documented as of this encounter Visit Diagnoses Not on filedocumented in this encounter Care Teams Hospice Consultant Relationship Specialty Start Date End Date Jag Dawson MD PCP - General 07/02/07 documented as of this encounter
--- OUTSIDE RECORDS SUMMARY | 2024-12-03 15:03 | XMS_ITS | Encounter Summary ---
Author Organization [facility] Address [address] [place] [address] Care Team Providers Care Washery Engineer Name Role Phone Jag Dawson MD Primary Care Provider [phone] Encounter Details Date Type Department Care Team (Late Contact Info) Description 11/26/[address] 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 Primary Care [address] [place] [address] Jag Dawson MD [address] [place] [address] [place] [address] documented as of this encounter Visit Diagnoses Not on filedocumented in this encounter Care Teams Washery Engineer Relationship Specialty Start Date End Date Jag Dawson MD PCP - General 07/02/07 documented as of this encounter
--- OUTSIDE RECORDS SUMMARY | 2024-12-03 15:03 | XMS_ITS | Encounter Summary ---
Author Organization [facility] Address [address] [place] [address] Care Team Providers Care Seat Joiner Chainstitch Name Role Phone Jag Dawson MD Primary Care Provider [phone] Encounter Details Date Type Department Care Team (Late st Contact Info) Description 05/16/2005 Orders Only [facility] Internal Medicine [address] [address] Jag Dawson MD [address] [place] [address] [address] [place] [address] Social History Tobacco Use Types Packs/Day Years Used Date Smoking Tobacco: Never Assessed Sex and Gender Information Value Date Recorded Sex Assigned at Not on file Legal Sex Male 3:09 AM REFRIGERATING ENGINEER Gender Identity Not on file Sexual Orientation Not on file documented as of this encounter Plan of Treatment Upcoming Encounters Date Type Department Care Team (Late st Contact Info) Description 05/11/2025 3:00 PM CDT Office Visit [facility] Primary Care [facility] [address] [facility] [address] [place] [address] Jag Dawson MD [address] [place] [address] [address] [place] [address] documented as of this encounter Visit Diagnoses Not on filedocumented in this encounter Care Teams Seat Joiner Chainstitch Relationship Specialty Start Date End Date Jag Dawson MD PCP - General 07/02/07 documented as of this encounter
--- OUTSIDE RECORDS SUMMARY | 2024-12-03 15:03 | XMS_ITS | Encounter Summary ---
Author Organization [facility] Address [address] [place] [address] Care Team Providers Care Dry End Tester Name Role Phone Jag Dawson MD Primary Care Provider Encounter Details Date Type Department Care Team (Late st Contact Info) Description 05/22/2006 Orders Only [facility] Internal Medicine [address] [address] Jag Dawson MD [address] [place] [address] [address] [place] [address] Social History Tobacco Use Types Packs/Day Years Used Date Smoking Tobacco: Never Assessed Sex and Gender Information Value Date Recorded Sex Assigned at Not on file Legal Sex Male 3:09 AM FLIGHT HOSTESS Gender Identity Not on file Sexual Orientation Not on file documented as of this encounter Plan of Treatment Upcoming Encounters Date Type Department Care Team (Late st Contact Info) Description 05/11/2025 3:00 PM CDT Office Visit [facility] Primary Care [facility] [address] [facility] [address] [place] [address] Jag Dawson MD [address] [place] [address] [address] [place] [address] documented as of this encounter Visit Diagnoses Not on filedocumented in this encounter Care Teams Dry End Tester Relationship Specialty Start Date End Date Jag Dawson MD PCP - General 07/02/07 documented as of this encounter
--- OUTSIDE RECORDS SUMMARY | 2024-12-03 15:03 | XMS_ITS | Encounter Summary ---
Author Organization [facility] Address [address] [place] [address] Care Team Providers Care Joggle Press Operator Name Role Phone Jag Dawson MD Primary Care Provider Encounter Details Date Type Department Care Team (Late st Contact Info) Description 12/05/2006 Orders Only [facility] Internal Medicine [address] [address] Jag Dawson MD [address] [place] [address] [address] [place] [address] Social History Tobacco Use Types Packs/Day Years Used Date Smoking Tobacco: Never Assessed Sex and Gender Information Value Date Recorded Sex Assigned at Not on file Legal Sex Male 3:09 AM BANQUET KITCHEN SUPERVISOR Gender Identity Not on file Sexual Orientation Not on file documented as of this encounter Plan of Treatment Upcoming Encounters Date Type Department Care Team (Late st Contact Info) Description 05/11/2025 3:00 PM CDT Office Visit [facility] Primary Care [facility] [address] [facility] [address] [place] [address] Jag Dawson MD [address] [place] [address] [address] [place] [address] documented as of this encounter Visit Diagnoses Not on filedocumented in this encounter Care Teams Joggle Press Operator Relationship Specialty Start Date End Date Jag Dawson MD PCP - General 07/02/07 documented as of this encounter
--- OUTSIDE RECORDS SUMMARY | 2024-12-03 15:03 | XMS_ITS | Encounter Summary ---
Author Organization [facility] Address [address] [place] [address] Care Team Providers Care Residential Sales Manager Name Role Phone Jag Dawson MD Primary Care Provider [phone] Encounter Details Date Type Department Care Team (Late Contact Info) Description 02/24/2004 Outpatient Historical [facility] [address] 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 Gender Identity Not on file Sexual Orientation Not on file documented as of this encounter Plan of Treatment Upcoming Encounters Date Type Department Care Team (Late Contact Info) Description 05/11/2025 3:00 PM CDT Office Visit [facility] Primary Care [address] [place] [address] Jag Dawson MD [address] [facility] [address] [place] [address] documented as of this encounter Visit Diagnoses Not on filedocumented in this encounter Care Teams Residential Sales Manager Relationship Specialty Start Date End Date Jag Dawson MD PCP - General 07/02/07 documented as of this encounter
--- OUTSIDE RECORDS SUMMARY | 2024-12-03 15:03 | XMS_ITS | Encounter Summary ---
Author Organization [facility] Address 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 Gender Identity Not on file Sexual Orientation Not on file documented as of this encounter Plan of Treatment Upcoming Encounters Date Type Department Care Team (Late st Contact Info) Description 05/11/2025 3:00 PM CDT Office Visit [facility] Primary Care [facility] [address] [facility] [address] [place] [address] Jag Dawson MD [address] [place] [address] [address] [place] [address] documented as of this encounter Visit Diagnoses Not on filedocumented in this encounter Care Teams Oil Exploration Engineer Relationship Specialty Start Date End Date Jag Dawson MD PCP - General 07/02/07 documented as of this encounter
--- OUTSIDE RECORDS SUMMARY | 2024-12-03 15:03 | XMS_ITS | Encounter Summary ---
Author Organization [facility] Address 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 Best Time to Call : ANYTIME. May We Leave Message At That Number : YES, LEAVE MESSAGE. Referring to: GASTROENTEROLOGY Dr. Alan Gaytan ph: [phone]. Reason for referral: screening colonoscopy PATIENT DIAGNOSIS: . ORDERING PHYSICIAN : AMIRA PRATT MD PRIORITY OF REFERRAL: AT PATIENT'S CONVENIENCE. OFFICE GREENS KEEPER & PHONE: Angelita Flores C FOR SCHEDULING [...] PRESSURE: 150/70 Right Arm Sitting NURSE NAME: Elias Spears N CHIEF COMPLAINT Patient here for follow [...] strips given LAB ORDERS: 3mo Order number: [id number] Test Ordered: COMPREHENSIVE METABOLIC PANEL W/ GLOMERULAR FILTRATION RATE, ESTIMATED (EGFR) 86161 Order number: [id number] Test Ordered: HEMOGLOBIN A1c 496 Order number: [id number] Test Ordered: LIPID PANEL 7600 Order number: [id number] Test Ordered: MICROALBUMIN/CREATININE RATIO, RANDOM URINE 6517 Order number: [id number] Test Ordered: PSA 5363 272.4-HYPERLIPIDEMIA contmed 401.9-HYPERTENSION, UNSPECIFIED ok on repeat, cnt med 461.9-SINUSITIS UNSPECIFIED re rx MEDICATIONS: CEFUROXIME AXETIL ORAL TABLET 250 MG, 1 Two Times A Day, 20 Dispensed, 10 Duration/Days Supply, status: CONTINUED, 04/10/2006. REPEAT VITAL SIGNS: BLOOD PRESSURE: 120/70. Right Arm Sitting SPECIALTY REFERRAL: GASTROENTEROLOGY Dr. Alan Gaytan ph: [phone]. Dr. Shayne Cook ph: [phone].colonoscopy/egd-reflux PREVENTIVE COUNSELING The patient was counseled regarding [...] 05/11/2025 3:00 PM CDT Office Visit [facility] Primary Care [address] [place] [address] Amira Pratt MD [address] [place] [address] [address] [place] [address] documented as of this encounter Visit Diagnoses Not on filedocumented in this encounter Care Teams Machine Adjuster Leader Case Trim Relationship Specialty Start Date End Date Amira Pratt MD PCP - General 07/02/07 documented as of this encounter
--- OUTSIDE RECORDS SUMMARY | 2024-12-03 15:03 | XMS_ITS | Encounter Summary ---
Author Organization [facility] Address 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 LAB ORDERS: 4 mo Order number: [id number] Test Ordered: COMPREHENSIVE METABOLIC PANEL & GFR 1112 Order number: [id number] Test Ordered: LIPID PANEL 1078 Order number: [id number] Test Ordered: HEMOGLOBIN A1C 1814 272.4-HYPERLIPIDEMIA stable, [...] return in 4 months. Electronically Signed by: aJg Dawson MD on Sunday, July 23, 2006 documented in this encounter Plan of Treatment Upcoming Encounters Date Type Department Care Team (Late st Contact Info) Description 05/11/2025 3:00 PM CDT Office Visit [facility] Care [address] [place] [address] Jag Dawson MD [address] [place] [address] [address] [place] [address] documented as of this encounter Visit Diagnoses Not on filedocumented in this encounter Care Teams Public Health Program Manager Relationship Specialty Start Date End Date Jag Dawson MD PCP - General 07/02/07 documented as of this encounter
--- OUTSIDE RECORDS SUMMARY | 2024-12-03 15:03 | XMS_ITS | Clinical Summary ---
Author Organization [facility] Address [address] [place] [address] Care Team Providers Care Consulting It Architect Name Role Phone Jag Dawson MD Primary Care Provider [phone] Allergies Active Allergy Reactions Criticality Noted Date Comments No Known Allergies 05/07/2003 Medications blood sugar diagnostic (ONETOUCH VERIO) Strip Check blood sugar once daily. Dx E11.9, non insulin use. Verio test strips. 100 Each 11 04/21/19 Active meclizine (ANTIVERT) 25 mg tablet Take 1 Tablet (25 mg) by mouth 3 times daily as needed for Dizziness. 30 Tablet 2 02/29/20 Active Additional Information Patient not taking.Reported on 06/22/2024 Insulin Bristol, Disposable, (Oksana Pen Needle) 32 gauge x 5/32 NeedleIndications: Type 2 diabetes mellitus without complication, with long-term current use of insulin USE 1 DAILY. 100 Each 3 04/19/19 Active Additional Information Patient not taking.Reported on 06/22/2024 naproxen (NAPROSYN) 500 mg tablet Take 1 Tablet (500 mg) by mouth 1 time daily as needed for Pain, Moderate. 30 Tablet 3 04/26/19 Active Additional Information Patient not taking.Reported on 06/22/2024 Insulin Syringe-Needle U-100 (BD Lo-Dose Ultra-Fine) 0.3 mL 29 gauge x 1/2 Syringe 1 Syringe 2 times daily. 200 Each 3 02/23/20 23 Active sildenafiL (Viagra) 100 mg tablet Take 1 Tablet (100 mg) by mouth 1 time daily as needed (ED). 10 Tablet 04/26/19 23 Active lancets (One Touch Delica) 33 gaugeIndications:T ype 2 diabetes mellitus without complication, with long-term current use of insulin Check Blood sugar once daily. Dx E11.9, non insulin use 100 Each 06/19/19 23 Active sildenafiL (Viagra) 100 mg tablet Take 1 Tablet (100 mg) by mouth 1 time daily as needed for Erectile Dysfunction. 30 Tablet 3 08/11/19 23 Active aspirin (ECOTRIN EC) 81 mg Tablet, Delayed Release (E.C.) Take 1 Tablet (81 mg) by mouth daily. 90 Tablet 06/07/19 24 Active tamsulosin (FLOMAX) 0.4 mg capsule Take 1 Capsule (0.4 mg) by mouth daily. 100 Capsule 3 07/08/19 24 Active Blood-Glucose Sensor (RespectanceStyle Robert 3 Sensor) Device Use to monitor glucose continuously. Apply a sensor every 14 days. 1 Each 01/23/20 24 Active metFORMIN (GLUCOPHAGE XR) 500 mg Extended Release 24 hour tablet TAKE 4 TABLETS BY MOUTH ONCE A DAY WITH BREAKFAST 400 Tablet 3 04/16/19 25 Active ezetimibe (ZETIA) 10 mg tablet TAKE 1 TABLET BY MOUTH ONCE A DAY 100 Tablet 04/16/19 25 Active atorvastatin (LIPITOR) 20 mg tabletIndications: Other hyperlipidemia TAKE 1 TABLET BY MOUTH ONCE A DAY (LATE IN THE DAY). 90 Tablet 06/13/19 25 Active lisinopriL (PRINIVIL) 2.5 mg tabletIndications: Essential hypertension TAKE 1 TABLET BY MOUTH ONCE A DAY 90 Tablet 06/13/19 25 Active pioglitazone (Actos) 15 mg tablet Take 1 Tablet (15 mg) by mouth daily with breakfast. 100 Tablet 3 06/23/19 25 Active insulin glargine (Lantus Solostar U-100 Insulin) 100 unit/mL pen syringe Inject 40 Units by subcutaneous injection daily. 15 mL 6 07/10/19 25 Active Myrbetriq 25 mg Extended Release 24 hour tablet Take 1 Tablet (25 mg) by mouth daily. 100 Tablet 3 07/31/19 25 Active Jardiance 25 mg tablet TAKE 1 TABLET BY MOUTH ONCE A DAY IN THE MORNING 90 Tablet 3 08/18/19 25 Active omeprazole (PriLOSEC) 40 mg Capsule, Delayed Release(E.C.) TAKE 1 CAPSULE BY MOUTH EVERY DAY 90 Capsule 2 09/10/19 25 Active sertraline (ZOLOFT) 25 mg tablet TAKE 1 TABLET BY MOUTH EVERY DAY 90 Tablet 2 09/10/19 25 Active celecoxib (CeleBREX) 200 mg capsule TAKE 1 CAPSULE BY MOUTH TWICE A DAY 60 Capsule 3 10/20/19 25 Active semaglutide (Ozempic) 0.25 mg or 0.5 mg (2 mg/3 mL) Pen InjectorIndication s:Type 2 diabetes mellitus without complication, with long-term current use of insulin Inject 0.25 mg by subcutaneous injection every 7 days. 9 mL 3 11/17/19 25 Active Active Problems Patient Care Coordination No te Formatting of this note migh t be different from the original. [id number] 03/12/22 [id number] 06/22/24 Problem Noted Date Diagnosed [...] Encounters Date Type Department Care Team Description 11/17/2024 External Device Data STL ABSTRACTION Provider, Abstract 11/16/2024 2:30 PM CDT Office Visit [facility] [address] [place] [address] Elissa Ortez PA Essential hypertension (Primary Dx); Type 2 diabetes mellitus without complication, with long-term current use of insulin ([facility]); Enlarged prostate with urinary obstruction; Need for influenza vaccination 10/20/2024 External Device Data STL ABSTRACTION Provider, Abstract 10/17/2024 Refill [facility] [address] [place] [address] Jag Dawson MD 09/16/2024 External Device Data STL ABSTRACTION Provider, Abstract 09/16/2024 External Device Data STL ABSTRACTION Provider, Abstract 09/09/2024 Refill [facility] [address] [place] [address] Jag Dawson MD from Last 3 Months Immunizations Immunization Administration Dates Next Due (ADACEL/BOOSTRIX)(10 YR UP) TDAP VACCINE, 0.5ML, IM 03/25/2013 (AREXVY)(60 YR UP) RSV, KATHI MBINANT, PROTEIN SUBUNIT RSVPREF, ADJUVANT RECONSTITUTED, 0.5 ML, PF 01/29/2023 (COMRINATY )(12YR UP) COVID-19 VACCINE, MRNA (PF)30 MCG/0.3 ML, IM SYRINGE 12/03/2023 (PFIZER)(12 YR UP) COVID-19 VACCINE - EMERGENCY USE AUTHORIZATION, MRNA, [id number](PF) 30 MCG/0.3 ML IM SUSP 01/11/2021,05/25/2020,05/03/2020 (PNEUMOVAX 23)(50 YRS UP) PN EUMOCOCCAL POLYSACCHARIDE (PPV23) 0.5 ML, IM 03/31/2019,08/14/2004,01/13/1999 (PREVNAR 13)(6 WKS UP) PNEUM OCOCCAL CONJUGATE (PCV13) 0.5 ML, IM 03/25/2015 (Pfizer Bivalent)(12 Yr Up) COVID-19 Vaccine - Emergency Use Authorization, MRNA, Lnp-S(Pf) 30 Mcg/0.3 Ml Susp 12/21/2021 (SPIKEVAX 2024-)(12YR UP) COVID-19 VACCINE, MRNA (PF)50 MCG/0.5 ML, IM SYRINGE 01/29/2023 (TDVAX)(7 YRS UP) TETANUS AN D DIPHTHERIA TOXOIDS, ADSORBED (2 LF OF TETANUS TOXOID AND 2 LF OF DIPHTHERIA TOXOID), 0.5ML (PF), IM 08/14/2004,09/01/1994 INFLUENZA VACCINE HIGH DOSE QUADRIVALENT 65 YR UP PF IM 12/07/2022,12/02/2021 INFLUENZA VACCINE HIGH DOSE TRIVALENT SPLIT VIRUS, (65 YR UP), 0.5ML (PF), IM 11/16/2024,12/03/2023 Influenza Seasonal Unspecifi ed Formulation IM 11/30/2015,11/10/2014,11/26/2013,11/19,12/03/2011,12/06/2009,11/16/2008 [...] often do you attend chur ch or sabianism services? 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 Gender Identity Not on file Sexual Orientation Not on file Occupation Industry Job Start Date Job End Date RETIRED Not on file Not on file Not on file Last Filed Vital Signs Vital Sign Reading Time Taken Comments Blood Pressure 102/60 11/16/2024 2:41 PM CDT Pulse 89 11/16/2024 2:41 PM CDT Temperature 36.4 C (97.5 F) 12/07/2022 11:38 AM CDT Respiratory Rate 16 08/10/2022 1:16 PM CDT Oxygen Saturation 97% 11/16/2024 2:41 PM CDT Inhaled Oxygen Concentration - - Weight 99.3 kg (219 lb) 11/16/2024 2:41 PM CDT Height 175.3 cm (5' 9) 11/16/2024 2:41 PM CDT Body Mass Index 32.34 11/16/2024 2:41 PM CDT Plan of Treatment Upcoming Encounters Date Type Department Care Team (Late st Contact Info) Description 05/11/2025 3:00 PM CDT Office Visit [facility] Primary Care [address] [place] [address] Jag Dawson MD [address] [facility] [address] [place] [address] Health Maintenance Due Date Last Done Comments [...] d or Tdap) 03/25/2023 03/25/2013, 08/14/2004, 09/01/1994 DIABETES ANNUAL RETINAL EXAM 09/08/202410/2023, 09/09/2023, 05/13/2023, Additional history exists DIABETES ANNUAL FOOT EXAM 10/06/20242023, 03/12/2022, 06/15/2020, Additional history exists COVID-19 Vaccine (2023-04 5 season) 2024 12/03/2023, 01/29/2023, 12/21/2021, Additional history exists DIABETES: A1C (Auto Order) 01/26/202510/26, 06/16/2024, 01/22/2024, Additional history exists DIABETES HBA1C Q 6 MONTHS 04/28/20252024, 06/16/2024, 01/22/2024, Additional history exists DIABETES MICROALBUMIN ANNUAL SCREEN 10/26/2025 10/26/2024, 06/04/2023, 03/09/2022, Additional history exists LDL CHOLESTEROL ANNUAL 10/26/2025 , 06/16/2024, 01/22/2024, Additional history exists COLORECTAL CANCER SCREENING (AUTO ORDER) 04/20/2026 04/20/2016, 04/20/2016, 04/20/2016, Additional history exists COLORECTAL SCREENING 04/20/2026 04/20/2016, 04/20/2016, 04/20/2016, Additional history exists Colorectal Cancer Screening (AUTO ORDER) 04/20/2026 Colorectal Cancer Screening 04/20/2026 PNEUMOCOCCAL VACCINE 50+ YEARS Completed 0 03/31/2019, 03/25/2015, 08/14/2004, Additional history exists RSV VACCINE (60+ or ) Completed 01/29/2023 [place] ([place]) Preventative Visit/Annual Wellness Visit Completed 06/22/2024, 06/07/2023, 03/12/2022, Additional history exists KHE eGFR (Auto Order) Completed 10/26/2024 , 06/16/2024, 01/22/2024, Additional history exists KHE uACR (Auto Order) Completed 10/26/2024 , 06/04/2023, 03/09/2022, Additional history exists INFLUENZA VACCINE Completed 11/16/2024, , 12/07/2022, Additional history exists Procedures Procedure Name Priority Date/Time Associated Diagnosis Comments MICROALBUMIN/CREATINI NE RATIO, RANDOM UR Routine 10/26/2024 7:26 AM CDT Type 2 diabetes mellitus without complication, with long-term current use of insulin ([facility]) TSH Routine 10/26/2024 7:23 AM CDT Other hyperlipidemia LIPID PANEL Routine 10/26/2024 7:23 AM CDT Other hyperlipidemia HEMOGLOBIN A1C Routine 10/26/2024 7:23 AM CDT Type 2 diabetes mellitus without complication, with long-term current use of insulin ([facility]) COMPREHENSIVE METABOLIC PANEL Routine 10/26/2024 7:23 AM CDT Other hyperlipidemia CBC WITH DIFFERENTIAL Routine 10/26/2024 7:23 AM CDT Essential hypertension HM DIABETES EYE EXAM Routine 09/09/2023 3:39 PM CDT ENDOSCOPY, COLON, SCREENING Routine 04/20/2016 from Last 3 Months or Most Recently Relevant to Health Maintenance Results * MICROALBUMIN/CREATININE RATIO, RANDOM UR (10/26/2024 7:26 AM CDT) CREATININE, URINE 93 20 - 320 mg/dL [facility] ALBUMIN, URINE 0.3 See Note: mg/dL [facility] Comment: Reference Range: Reference Range Not established ALB/CREAT RATIO, URINE 3 <30 mg/g creat [facility] Comment: The ADA defines abnormalities in albumin excretion as follows: Albuminuria Category Result (mg/g creatinine) Normal to Mildly increased <30 Moderately increased 30-299 Severely increased > OR = 300 The ADA recommends that at least two of three specimens collected within a 3-6 month period be abnormal before considering a patient to be within a diagnostic category. FASTING:YES FASTING: YES Test Performed at: [facility] [address] [place] [address] Caitlin Puri MD Urine URINE SPECIMEN OBTAINED BY CLEAN CATCH PROCEDURE / Unknown 10/26/2024 7:26 AM CDT 10/26/2024 7:31 AM CDT us Jag Dawson MD URINE ORDERABLES Final Result [facility] [phone] [facility] [address] [place] [address] * CBC WITH DIFFERENTIAL (10/26/2024 7:23 AM CDT) WBC 6.4 3.8 - 10.8 Thousand/u L [facility] RBC 4.98 4.20 - 5.80 Million/uL [facility] HEMOGLOBIN 14.8 13.2 - 17.1 g/dL [facility] HEMATOCRIT 46.2 38.5 - 50.0 % [facility] MCV 92.8 80.0 - 100.0 fL [facility] MCH 29.7 27.0 - 33.0 pg [facility] MCHC 32.0 32.0 - 36.0 g/dL [facility] Comment: For adults, a slight decrease in the calculated MCHC value (in the range of 30 to 32 g/dL) is most likely not clinically significant; however, it should be interpreted with caution in correlation with other red cell parameters and the patient's clinical condition. RDW 13.1 11.0 - 15.0 % [facility] PLATELETS 238 140 - 400 Thousand/u L [facility] MPV 10.1 7.5 - 12.5 fL [facility] NEUTROPHIL ABSOLUTE 3,347 1,500 - 7,800 cells/uL [facility] LYMPHOCYTE ABSOLUTE 2,240 850 - 3,900 cells/uL [facility] MONOCYTE ABSOLUTE 493 200 - 950 cells/uL [facility] EOSINOPHIL ABSOLUTE 282 15 - 500 cells/uL [facility] BASOPHILS ABSOLUTE 38 0 - 200 cells/uL [facility] NEUTROPHIL 52.3 % [facility] LYMPHOCYTES 35.0 % [facility] MONOCYTE 7.7 % [facility] EOSINOPHILS 4.4 % [facility] BASOPHILS 0.6 % [facility] Comment: FASTING:YES FASTING: YES Test Performed at: [facility] [address] Caitlin Puri MD Blood 10/26/2024 7:23 AM CDT 10/26/2024 7:24 AM CDT us Jag Dawson MD HEMATOLOGY ORDERABLES Final R esult [facility] [phone] [facility] [address] * TSH (10/26/2024 7:23 AM CDT) TSH 1.60 0.40 - 4.50 mIU/L [facility] Comment: FASTING:YES FASTING: YES Test Performed at: [facility] [address] [place] [address] Caitlin Puri MD Blood 10/26/2024 7:23 AM CDT 10/26/2024 7:24 AM CDT Jag Dawson MD CHEMISTRY ORDERABLES Final Re sult Performing Organization Address City/[facility]/ZIP [facility] Phone Number [facility] [phone] [facility] [address] [place] [address] * (ABNORMAL) HEMOGLOBIN A1C (10/26/2024 7:23 AM CDT) HEMOGLOBIN A1C 8.7(H) <5.7 % of total Hgb [facility] Comment: For someone without known diabetes, a [...] diabetes for children. ESTIMATED AVERAGE GLUCOSE (MG/DL) 203 mg/dL [facility]ia ESTIMATED AVERAGE GLUCOSE (MMOL/L) 11.2 mmol/L [facility] Comment: FASTING:YES FASTING: YES Test Performed at: [facility] [address] [place] [address] Caitlin Puri Blood 10/26/2024 7:23 AM CDT 10/26/2024 7:24 AM CDT Jag Dawson MD CHEMISTRY ORDERABLES Final Re sult Performing Organization Address City/[facility]/ZIP Code Phone Number [facility] [phone] [facility] [address] [place] [address] * LIPID PANEL (10/26/2024 7:23 AM CDT) CHOLESTEROL 131 <200 mg/dL [facility] HDL 58 > OR = 40 mg/dL [facility] TRIGLYCERIDE 65 <150 mg/dL [facility] LDL CALCULATED 59 mg/dL (calc) [facility] Comment: Reference range: <100 Desirable range <100 mg/dL for primary prevention; <70 mg/dL for patients with CHD or diabetic patients with > or = 2 CHD risk factors. LDL-C is now calculated using the [place] calculation, which is a validated novel method providing better accuracy than the Friedewald equation in the estimation of LDL-C. Jae SS et al. MYRIAM. 2013;310(28): 2294-0620 (http://education.BabyWatch/faq/CCN655) CHOL/HDL RATIO 2.3 <5.0 (calc) [facility] NON-HDL CHOLESTEROL 73 <130 mg/dL (calc) [facility] Comment: For patients with diabetes plus 1 major ASCVD risk factor, treating to a non-HDL-C goal of <100 mg/dL (LDL-C of <70 mg/dL) is considered a therapeutic option. Test Performed at: [facility] [address] [place] [address] Caitlin Puri MD Blood 10/26/2024 7:23 AM CDT 10/26/2024 7:24 AM CDT us Jag Dawson MD CHEMISTRY ORDERABLES Final Re sult [facility] [phone] [facility] [address] [place] [address] * COMPREHENSIVE METABOLIC PANEL (10/26/2024 7:23 AM CDT) [facility] GLUCOSE 85 65 - 99 mg/dL [facility] Comment: Fasting reference interval BUN 25 7 - 25 mg/dL [facility] CREATININE 0.84 0.70 - 1.28 mg/dL [facility] GFR 91 > OR = 60 mL/min/1. 73m2 [facility] BUN/CREAT RATIO SEE NOTE: 6 - 22 (calc) [facility] Comment: Not Reported: BUN and Creatinine are within reference range. SODIUM 137 135 - 146 mmol/L [facility] POTASSIUM 4.5 3.5 - 5.3 mmol/L [facility] CHLORIDE 100 98 - 110 mmol/L [facility] CO2 31 20 - 32 mmol/L [facility] CALCIUM 9.1 8.6 - 10.3 mg/dL [facility] TOTAL PROTEIN 6.7 6.1 - 8.1 g/dL [facility] ALBUMIN 4.2 3.6 - 5.1 g/dL [facility] GLOBULIN 2.5 1.9 - 3.7 g/dL (calc) [facility] ALBUMIN/GLOBULIN RATIO 1.7 1.0 - 2.5 (calc) [facility] BILIRUBIN TOTAL 0.7 0.2 - 1.2 mg/dL [facility] ALKALINE PHOSPHATASE 74 35 - 144 U/L [facility] AST 19 10 - 35 U/L [facility] ALT 20 9 - 46 U/L [facility] Comment: FASTING:YES FASTING: YES Test Performed at: [facility] [address] Caitlin Puri MD Blood 10/26/2024 7:23 AM CDT 10/26/2024 7:24 AM CDT us Jag Dawson MD CHEMISTRY ORDERABLES Final Re sult [facility] [phone] [facility] [address] * HM DIABETES EYE EXAM (09/09/2023 3:39 PM CDT) us Abstract Provider HEALTH MAINTENANCE Edited Resu lt - Final [facility] CLIA# [id number] [address] [facility] [address] [place] [address] * ENDOSCOPY, COLON, SCREENING (04/20/2016) us Abstract Provider GI PROCEDURE ORDERABLES Edited Result - Final [facility] from Last 3 Months or Most Recently Relevant to Health Maintenance Insurance [facility] Address: [place] [address] Advance Directives For more information, please contact: [phone] Documents on File Type Date Recorded Patient Fern Gatherer Expl anation Advance Directive POA 09/20/2011 9:04 AM A dvance Directive POA, 08/19/10 Advance Directive Living Will 08/17/2011 Care Teams Consulting It Architect Relationship Specialty Start Date End Date Jag Dawson MD PCP - General 07/02/07
--- OUTSIDE RECORDS SUMMARY | 2024-12-03 15:03 | XMS_ITS | Encounter Summary ---
Author Organization [facility] Address 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
--- OUTSIDE RECORDS SUMMARY | 2024-12-03 15:03 | XMS_ITS | Encounter Summary ---
Author Organization [facility] Address 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 Gender Identity Not on file Sexual Orientation Not on file documented as of this encounter Plan of Treatment Upcoming Encounters Date Type Department Care Team (Late st Contact Info) Description 05/11/2025 3:00 PM CDT Office Visit [facility] Primary Care [facility] [address] [facility] [address] [place] [address] Jag Dawson MD [address] [place] [address] [address] [place] [address] documented as of this encounter Visit Diagnoses Not on filedocumented in this encounter Care Teams Intermediate Accountant Relationship Specialty Start Date End Date Jag Dawson MD PCP - General 07/02/07 documented as of this encounter
--- OUTSIDE RECORDS SUMMARY | 2024-12-03 15:03 | XMS_ITS | Encounter Summary ---
Author Organization [facility] Address 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 Gender Identity Not on file Sexual Orientation Not on file documented as of this encounter Plan of Treatment Upcoming Encounters Date Type Department Care Team (Late st Contact Info) Description 05/11/2025 3:00 PM CDT Office Visit [facility] Primary Care [facility] [address] [facility] [address] [place] [address] Jag Dawson MD [address] [place] [address] [address] [place] [address] documented as of this encounter Visit Diagnoses Not on filedocumented in this encounter Care Teams Underwear Trimmer Relationship Specialty Start Date End Date Jag Dawson MD PCP - General 07/02/07 documented as of this encounter
--- OUTSIDE RECORDS SUMMARY | 2024-12-03 15:03 | XMS_ITS | Encounter Summary ---
Author Organization [facility] Address 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 [address] [place] [address] Jag Dawson MD [address] [place] [address] [address] [place] [address] documented as of this encounter Visit Diagnoses Not on filedocumented in this encounter Care Teams Poultry Farmworker Relationship Specialty Start Date End Date Jag Dawson MD PCP - General 07/02/07 documented as of this encounter
--- OUTSIDE RECORDS SUMMARY | 2024-12-03 15:03 | XMS_ITS | Encounter Summary ---
Author Organization [facility] Address 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
--- OUTSIDE RECORDS SUMMARY | 2024-12-03 15:03 | XMS_ITS | Encounter Summary ---
Author Organization [facility] Address [address] [place] [address] Care Team Providers Care Development Director Name Role Phone Jag Dawson MD Primary Care Provider [phone] Encounter Details Date Type Department Care Team (Late Contact Info) Description 04/10/2006 Outpatient Historical [facility] Internal Medicine [address] [phone] Jag Dawson MD [address] [place] [address] [address] [place] [address] Social History Tobacco Use Types Packs/Day Years Used Date Smoking Tobacco: Never Assessed Sex and Gender Information Value Date Recorded Sex Assigned at Not on file 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 Gender Identity Not on file Sexual Orientation Not on file documented as of this encounter Last Filed Vital Signs Vital Sign Reading Time Taken Comments Blood Pressure 120/70 04/10/2006 4:30 PM WATERWORKS SUPERVISOR Pulse - - Temperature - - Respiratory Rate - - Oxygen Saturation - - Inhaled Oxygen Concentration - - Weight 105.2 kg (232 lb) 04/10/2006 4:30 PM WATERWORKS SUPERVISOR Height - - Body Mass Index - - documented in this encounter Plan of Treatment Upcoming Encounters Date Type Department Care Team (Late st Contact Info) Description 05/11/2025 3:00 PM CDT Office Visit [facility] Primary Care [address] [place] [address] Jag Dawson MD [address] [place] [address] [place] [address] documented as of this encounter Visit Diagnoses Not on filedocumented in this encounter Care Teams Development Director Relationship Specialty Start Date End Date Jag Dawson MD PCP - General 07/02/07 documented as of this encounter
--- OUTSIDE RECORDS SUMMARY | 2024-12-03 15:03 | XMS_ITS | Encounter Summary ---
Author Organization [facility] Address 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
--- OUTSIDE RECORDS SUMMARY | 2024-12-03 15:03 | XMS_ITS | Encounter Summary ---
Author Organization [facility] Address 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 [employer] Gender Identity Not on file Sexual Orientation Not on file documented as of this encounter Last Filed Vital Signs Vital Sign Reading Time Taken Comments Blood Pressure 120/70 03/13/2006 1:30 PM [employer] Pulse - - Temperature 36.6 C (97.9 F) 03/13/2006 1:30 PM [employer] Respiratory Rate - - Oxygen Saturation - - Inhaled Oxygen Concentration - - Weight 104.3 kg (230 lb) 03/13/2006 1:30 PM [employer] Height - - Body Mass Index - - documented in this encounter Plan of Treatment Upcoming Encounters Date Type Department Care Team (Late st Contact Info) Description 05/11/2025 3:00 PM CDT Office Visit [facility] Primary Care [address] [place] [address] Jag Dawson MD [address] [facility] [address] [place] [address] documented as of this encounter Visit Diagnoses Not on filedocumented in this encounter Care Teams National Accounts Sales Relationship Specialty Start Date End Date Jag Dawson MD PCP - General 07/02/07 documented as of this encounter
--- OUTSIDE RECORDS SUMMARY | 2024-12-03 15:03 | XMS_ITS | Encounter Summary ---
Author Organization [facility] Address [address] [place] [address] Care Team Providers Care End Worker Name Role Phone Jag Dawson MD Primary Care Provider Encounter Details Date Type Department Care Team (Late st Contact Info) Description 10/17/[address] 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 LAB ORDERS: Order number: [id number] Test Ordered: XRAY C SPINES 462-PHARYNGITIS rx MEDICATIONS: CEFUROXIME AXETIL ORAL TABLET 250 MG, 1 Two Times A Day, 20 Dispensed, 10 Duration/Days Supply, status: NEW PRESCRIPTION, 10/17/2005. RETURN VISIT : Instructed to call if not improving.note for off work until Saturday Electronically Signed by: Jag Dawson MD on Saturday, October 17, 2005 documented in this encounter Plan of Treatment Upcoming Encounters Date Type Department Care Team (Late st Contact Info) Description 05/11/2025 3:00 PM CDT Office Visit [facility] Care [address] [phone] Jag Dawson MD [address] [place] [phone] documented as of this encounter Visit Diagnoses Not on filedocumented in this encounter Care Teams End Worker Relationship Specialty Start Date End Date Jag Dawson MD PCP - General 07/02/07 documented as of this encounter
--- NOTE | 2024-12-03 15:09 | ED_ITS ---
HPI - General Adult General Chief complaint: Skin/Abscess/Foreign Body Stated complaint: Mouth Sore Time Seen by Provider: 12/03/24 15:11 Source: patient, RN notes reviewed and old records reviewed Mode of arrival: ambulatory Limitations: no limitations History of Present Illness HPI narrative: 74-year-old male presents to the [facility] with complaints of a sore tongue, sore mouth that started yesterday. States that he ate yesterday normally and by the afternoon was not able to eat anything. Patient is a diabetic. Does not use any type of inhalers. Concern about the white patches to the roof of his mouth, left cheek, upper lip and tongue. Onset (ago): day(s) (1) Treatments prior to arrival: none Related Data Home Medications ?Medication ?Instructions ?Recorded ?Confirmed ?Last Taken ?Type atorvastatin 20 mg tablet mg 07/17/24 Unknown History celecoxib 200 mg capsule mg 07/17/24 Unknown History empagliflozin 25 mg tablet mg 07/17/24 Unknown Histor y (Jardiance) ezetimibe 10 mg tablet mg 07/17/24 Unknown History insulin glargine 100 unit/mL (3 unit subcut 07/17/24 Unknown History mL) subcutaneous pen (Lantus Solostar U-100 Insulin) lisinopril 2.5 mg tablet mg 07/17/24 Unknown History metformin 500 mg tablet,extended mg PO 07/17/24 Unkno wn History release 24 hr omeprazole 40 mg capsule,delayed mg 07/17/24 Unknown History release pioglitazone 15 mg tablet mg 07/17/24 Unknown History sertraline 25 mg tablet mg 07/17/24 Unknown History tamsulosin 0.4 mg capsule mg PO 07/17/24 Unknown Hist ory Allergies Allergy/AdvReac Type Severity Reaction Status Date / Time No Known Allergies Allergy Verified 12/03/24 15:03 Review of Systems Review of Systems: All systems reviewed & are unremarkable except as noted in HPI and below Constitutional: Constitutional: Reports no additional constitutional complaints ENT: Reports as per HPI Cardiovascular: Cardiovascular: Reports no additional cardiovascular complaints, Denies chest pain and Denies dyspnea Respiratory: Respiratory: Reports no additional respiratory complaints, Denies chest congestion, Denies cough and Denies dyspnea Musculoskeletal: Musculoskeletal: Reports no additional musculoskeletal complaints Integumentary/Breasts: Skin/Breast: Reports system reviewed and no additional complaints, except as docu PMFSH Comments At the time of my signature, I reviewed and agree with the nursing past medical, surgical, social, and family history. There is no relevant family history pertinent to the patient complaint. Exam Const: General: cooperative, no acute distress, well developed, alert, uncomfortable and well nourished Nutritional Appearance: well nourished Orientation/consciousness: patient oriented x3 Limitations: no limitations HENMT: Head: normal to inspection Ears: hearing grossly normal bilaterally, external ears normal, TM's normal bilaterally, EAC's normal, mastoids normal and no periauricular adenopathy Mouth: Yes Abnormal oral and palatal mucosa present white patches (Upper lip, under tongue, left cheek, roof of mouth) and Yes other Throat: uvula midline and no uvular edema Eyes: General: appearance normal, both eyes and all related structures Alignment and Position: alignment normal Neck: Neck: normal visual inspection, full ROM, no lymphadenopathy and no meningeal signs Chest: Chest palpation & inspection: normal inspection of the chest Resp: Effort & Inspection: normal respiratory effort and able to speak in complete sentences Cardio: Rate: regular rate Skin: General skin exam: normal color and no rashes or lesions noted Neuro: General: patient oriented x3, gait normal, moves all extremities and no meningeal signs Cognition (Neuro): normal cognition Speech: normal speech Gait exam (Neuro): Normal gait present Extrem: General: normal to inspection, full ROM, capillary refill normal and normal gait Psych: Appearance: grossly normal and well kempt Mental Status: mental status grossly normal Speech and movement: Normal speech and movement present and Clear speech present Affect: normal affect Attitude: cooperative Course Course Level of Care: Express Care Visit Vital Signs Vital signs: Vital Signs Temperature 97.8 F 12/03/24 15:15 Pulse Rate 94 12/03/24 15:15 Respiratory Rate 18 12/03/24 15:15 Blood Pressure 126/60 12/03/24 15:15 Pulse Oximetry 97 12/03/24 15:15 Oxygen Delivery Room Air 12/03/24 15:15 Temperature 97.8 F 12/03/24 15:15 Pulse Rate 94 12/03/24 15:15 Respiratory Rate 18 12/03/24 15:15 Blood Pressure 126/60 12/03/24 15:15 Pulse Oximetry 97 12/03/24 15:15 Oxygen Delivery Room Air 12/03/24 15:15 Reviewed Medical Decision Making MDM Narrative Medical decision making narrative: Patient sitting in exam room. Patient is nontoxic and vitals are stable. Blood sugar is 71, has not eaten today. Patient with painful white areas to the mouth, tongue. Concern for oral thrush, leukoplakia, even oral cancer. Discussed with patient that we are not able to do any further workup, he needs to follow-up. Encourage patient to follow-up with his dental provider in primary care provider, discussed signs and symptoms to proceed to the emergency room which he verbalized understanding Discharge instructions reviewed with patient, as well as provided in writing per nursing staff. The instructions also include specific and strict return/GO TO THE ER as well as f/u information. All questions have been answered, and the patient deny any further questions with discharge and discharge plan. Some parts of this dictation were generated by voice recognition software and may contain typographical and/or grammatical inaccuracies. Differential Diagnosis Differential Diagnosis: Thrush, oral lesions, aphthous ulcers, Leukoplakia, oral lichen planus Medical Records Medical records reviewed: Yes I reviewed the external patient's medical records. Vital Signs Vital Signs: Vital Signs Temperature 97.8 F 12/03/24 15:15 Pulse Rate 94 12/03/24 15:15 Respiratory Rate 18 12/03/24 15:15 Blood Pressure 126/60 12/03/24 15:15 Pulse Oximetry 97 12/03/24 15:15 Oxygen Delivery Room Air 12/03/24 15:15 Temperature 97.8 F 12/03/24 15:15 Pulse Rate 94 12/03/24 15:15 Respiratory Rate 18 12/03/24 15:15 Blood Pressure 126/60 12/03/24 15:15 Pulse Oximetry 97 12/03/24 15:15 Oxygen Delivery Room Air 12/03/24 15:15 Reviewed Lab Data Lab results reviewed: Yes I reviewed the patient's lab results. Labs: Lab Results 12/03/24 Range/Units 15:13 POC Capillary Glucose 71 (65-105) mg/dl Reviewed Critical Care Time Critical Care Time Critical Care Time: No Discharge Plan Discharge Clinical Impression: Oral mucosal lesion Clinical Impression: (Ruled Out): Contact dermatitis Patient Disposition: Home Condition: Stable Instructions: Antibiotic Form, Oral Candidiasis (ED) Additional Instructions: Follow-up with your dental provider as soon as possible Follow-up with your primary care provider this week For new or worsening symptoms go directly to emergency room Patient Language: Turkish Prescriptions: New triamcinolone acetonide 0.1 % paste 1 applic dental BID 7 Days Qty: 5 0RF Rx Instructions: use after food and/or drink and/or oral hygiene nystatin 100,000 unit/mL suspension 5 ml PO QID 7 Days Qty: 140 0RF Rx Instructions: swish and swallow No Action celecoxib 200 mg capsule pioglitazone 15 mg tablet atorvastatin 20 mg tablet omeprazole 40 mg capsule,delayed release(DR/EC) tamsulosin 0.4 mg capsule PO sertraline 25 mg tablet metformin 500 mg tablet extended release 24 hr PO lisinopril 2.5 mg tablet ezetimibe 10 mg tablet insulin glargine [Lantus Solostar U-100 Insulin] 100 unit/mL (3 mL) insulin pen SUBCUT Jardiance 25 mg tablet Follow-up/Referrals: Samir,Jag Gonzales MD [Primary Care Provider] - 3 Days Clinical Impression: Oral mucosal lesion Time of Disposition: 15:23
[2024-12-03 15:15] VITALS: BP 126/60; PULSE 94; RESP 18; TEMP 36.6; O2SAT 97
== END 2024-12-03 15:31 | disposition home or self-care (01) ==
PROVIDERS: Emergency Provider Nurse Practitioner; PCP Internal Medicine
DX: K13.70 Unspecified lesions of oral mucosa (principal)
CPT/HCPCS: 82948; 99213; G0463